=== PATIENT | female | born 1940 | race Caucasian/White ===

== ENCOUNTER 2017-11-21 10:47 | Outpatient (CLI) | payer MEDICARE, BC ==
--- NOTE | 2017-11-21 14:00 | CT ---
CT ABDOMEN AND PELVIS WITHOUT CONTRAST: Technique: Multiple axial tomograms were obtained through the abdomen and pelvis without IV enhanceme nt. History: Renal stones. Follow up renal calculi. Comparison: 05-06-17, 10-31-16 FINDINGS: Lung bases are clear. The liver, spleen, and pancreas are unremarkable. Adrenal glands are unremarkable. There continues to be numerous calculi in the upper collecting structures of the right kidney. These calculi have increased in size and number when compared to the 05-06-17 study. There is a calculus in t he upper pole collecting structures on the right measuring up to 8 mm. There is a midpole calculus me asuring 1.0 cm. There is a lower pole calculus measuring 8 to 10 mm. There are numerous other smaller calculi measuring in the 2-3 mm range. No calculi seen in the left upper collecting structures. The ureters appear unremarkable with no evidence of ureteral calculus. There is no evidence of hydron ephrosis. There is a tiny calculus seen in the left abdomen, just anterior to the psoas muscle adjacent to the mid left ureter. This calculus is stable from prior exam and appears to lie outside the ureter. Urinary bladder is mildly distended and appears unremarkable. Small bowel loops are unremarkable. Diffuse stool throughout the colon has been previously described as chronic constipation. There are post-operative changes involving both proximal femurs. There is a calcified mass lesion inv olving the lower thoracic upper lumbar spine which has been previously described. IMPRESSION: 1. Numerous calcifications in the upper collecting structures of the right kidney. These have increas ed in size and number when compared to 05-06-17. 2. No hydronephrosis or ureteral calculus identified. 3. Otherwise stable findings including chronic constipation and previously described calcified spinal mass. POS: [facility]
== END 2017-11-21 10:48 | disposition home or self-care (01) ==
LOC: CT 10:47
PROVIDERS: ATTEND Urology
DX: N20.0 Calculus of kidney (principal); N39.41 Urge incontinence; K59.00 Constipation, unspecified; R22.2 Localized swelling, mass and lump, trunk
CPT/HCPCS: 74018; 74176

== ENCOUNTER 2017-12-11 15:11 | Outpatient (CLI) | payer MEDICARE, BC ==
[2017-12-11 16:21] LABS: Mean Corpuscular HGB CONC 33.8 g/dL (32.0-36.0); Mean Corpuscular Hemoglobin 32.4 pg (27.0-31.0); Mean Platelet Volume 8.9 fL (7.4-10.4); Platelet Count 169 thou/uL (130-400); RBC Distribution Width 11.5 % (11.5-14.5); Red Blood Cell (RBC) Count 4.62 mill/uL (4.20-5.40)
[2017-12-11 16:40] LABS: Anion Gap 11 mmol/L (10-20); BUN (Urea Nitrogen) 23 mg/dL (9.8-20.1); Calc. Creatinine Clearance 0 mL/min (70-130); Calcium 9.1 mg/dL (7.8-10.44); Carbon Dioxide 26 mmol/L (23-31); Chloride 105 mmol/L (98-107); Estimated GFR-MDRD Greater than 90; Glucose 82 mg/dL (83-110); Potassium 4.5 mmol/L (3.5-5.1); Sodium 137 mmol/L (136-145)
== END 2017-12-11 15:12 | disposition home or self-care (01) ==
LOC: LABBT 15:11
PROVIDERS: ATTEND Urology
DX: Z01.818 Encounter for other preprocedural examination (principal); Z01.812 Encounter for preprocedural laboratory examination; N20.0 Calculus of kidney
CPT/HCPCS: 80048; 85027; 85610; 85730

== ENCOUNTER → 2018-01-06 | Day surgery (SDC) | payer MEDICARE, BC ==
--- NOTE | 2018-01-06 12:48 | SPC ---
LEFT UPPER EXTREMITY PICC LINE PLACEMENT: INDICATION: Need for long-term central venous access. TECHNIQUE: Preprocedure ultrasound was performed of the left upper extremity demonstrating a patent left basilic vein. The left upper extremity was prepped and draped in the usual sterile fashion. Buffered 1% Li docaine was administered to the overlying subcutaneous tissues. Under ultrasound guidance, a micropu ncture access kit was used to utilized to gain access to the left basilic vein. A guidewire was adva nced to the level of the IVC. A 5 Syrian catheter sheath was placed. A dual-lumen PICC line trimmed to 39 cm was guided over the wire through the sheath. The sheath and wire were removed. The cathet er flushed and aspirated appropriately. Total fluoroscopic time was 0.4 minutes. Total exposure was 3,277 mGy*^cm2. IMPRESSION: Successful ultrasound fluoroscopic guided left upper extremity PICC line. POS: [facility]
== END ==
LOC: SPEC 09:26
PROVIDERS: ATTEND Internal Medicine Infectious Disease
PROC: 02HV33Z Insertion of Infusion Device into Superior Vena Cava, Percutaneous Approach (ICD-10-PCS; principal; 2018-01-06)
DX: Z88.8 Allergy status to other drugs, medicaments and biological substances; Z91.018 Allergy to other foods; Z79.2 Long term (current) use of antibiotics; Z88.2 Allergy status to sulfonamides; N39.0 Urinary tract infection, site not specified
CPT/HCPCS: 36569; C1751

== ENCOUNTER 2018-01-27 06:16 | Day surgery (SDC) | payer MEDICARE, BC ==
[2017-12-11 15:29] VITALS: BMI 21.2
[2018-01-27] MEDS ORDERED: Meropenem 2 GM in Sodium Chloride 0.9% 100 ML IVPB SCH (06:45)
[2018-01-27 07:10] LABS: Hemoglobin 15.3 g/dL (12.0-16.0); Mean Corpuscular HGB CONC 33.3 g/dL (32.0-36.0); Mean Corpuscular Hemoglobin 32.2 pg (27.0-31.0); Mean Corpuscular Volume 96.8 fl (81.0-99.0); Mean Platelet Volume 9.1 fL (7.4-10.4); Platelet Count 168 thou/uL (130-400); RBC Distribution Width 11.5 % (11.5-14.5); Red Blood Cell (RBC) Count 4.75 mill/uL (4.20-5.40); White Blood Cell (WBC) Count 3.8 thou/uL (4.8-10.8)
[2018-01-27] MEDS ORDERED: Fentanyl 100 MCG/2 ML VIAL ONE ×2 (07:11)
[2018-01-27] MEDS ORDERED: Midazolam HCl 2 mg/2 ml Vial ONE (07:11)
[2018-01-27] MEDS ORDERED: Ondansetron HCl/PF 4 MG/2 ML Vial ONE (07:12)
[2018-01-27] MEDS ORDERED: Iothalamate Meglumine 60% 50 ML VIAL FS ONE (07:13)
[2018-01-27 07:16] LABS: PTT 31.1 SEC (22.9-36.1); Prothrombin Time 13.5 SEC (12.0-14.7)
[2018-01-27 07:32] LABS: Anion Gap 10 mmol/L (10-20); BUN (Urea Nitrogen) 15 mg/dL (9.8-20.1); Calc. Creatinine Clearance 76 mL/min (70-130); Calcium 9.2 mg/dL (7.8-10.44); Carbon Dioxide 26 mmol/L (23-31); Chloride 106 mmol/L (98-107); Estimated GFR-MDRD Greater than 90; Glucose 74 mg/dL (83-110); Potassium 4.2 mmol/L (3.5-5.1); Sodium 138 mmol/L (136-145)
[2018-01-27] MEDS ORDERED: Phenazopyridine HCl 97.5 MG TABLET ONE ×2 (09:07→09:08)
[2018-01-27] MEDS ORDERED: Oxybutynin 5 MG TAB ONE (09:08)
--- NOTE | 2018-01-27 09:31 | RAD ---
KUB: (3 images) INDICATION: Preop evalutation for kidney stones. COMPARISON: Prior CT of the abdomen and pelvis dated 11/27/17. FINDINGS: There is an extensive amount of stool within the rectum and colon obscuring the renal shadows. The p atient's previously demonstrated left mid ureteral calculus is poorly detailed on the current study d ue to the extent of the constipation. Lung bases are clear. There is instrumentation involving both proximal femurs. Superolateral subluxation of the right hip which is stable to the prior exam. IMPRESSION: Extensive amount of retained stool within the colon and rectum limiting the evaluation. The patient' s known renal calculi are poorly demonstrated. POS: [facility]
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
--- NOTE | 2018-01-27 10:19 | RAD ---
FOUR SUBMITTED IMAGES FROM A RIGHT-SIDED RETROGRADE IVP: Fluoroscopic time 38 seconds. Total exposure 10.9 mGy. COMPARISON: KUB dated 12/31/17. FINDINGS: The submitted images demonstrate a prominent amount of retained stool within the colon and rectum. S ubsequent images demonstrate a scope within the region of the bladder with selection of the right dis eugene ureter and retrograde opacification of right renal collecting system. There is slight limited fi lling with a contour abnormality involving the mid right ureter which may be related to the extent of the contrast opacification. This is seen at the level of the right sacral ala and may be related to a crossing vessel. The subsequent images demonstrate placement of a right ureteral stent. The sten t projects in the expected position. Small suspected phleboliths are seen within the lower right hem ipelvis. IMPRESSION: 1. Retrograde opacification of the right ureter demonstrates a small focal area of filling defect in volving the right mid ureter near the sacral ala which may be related to crossing vessel. The border s of this filling defect are not as distinct as would be expected within intraluminal stone. 2. Right ureteral stent projects in the expected position. POS: [facility]
== END 2018-01-27 13:19 ==
LOC: SDC 06:16
PROVIDERS: ATTEND Urology
PROC: 0TF38ZZ Fragmentation in Right Kidney Pelvis, Via Natural or Artificial Opening Endoscopic (ICD-10-PCS; principal; 2018-01-27)
PROC: 0T768DZ Dilation of Right Ureter with Intraluminal Device, Via Natural or Artificial Opening Endoscopic (ICD-10-PCS; 2018-01-27)
DX: N20.0 Calculus of kidney (principal); K21.9 Gastro-esophageal reflux disease without esophagitis; Z88.2 Allergy status to sulfonamides; Z88.8 Allergy status to other drugs, medicaments and biological substances; Z91.018 Allergy to other foods; Z79.899 Other long term (current) drug therapy; Z98.890 Other specified postprocedural states
CPT/HCPCS: 36415; 74018; 74420; 80048; 85027; 85610; 85730; 93005; 93010; C1758; C1769; J2185; J2250; J2405; J3010; J7050; Q9961

== ENCOUNTER 2018-01-29 16:32 | Emergency (ER) | payer MEDICARE, BC ==
[2018-01-29 17:29] LABS: #Eosinphils 0.2 thou/uL (0.0-0.7); #Lymphocytes 1.3 thou/uL (1.20-3.40); #Monocytes 0.9 thou/uL (0.11-0.59); #Neutrophils 5.3 thou/uL (1.40-6.50); %Basophils 0.4 % (0.0-1.0); %Eosinophils 2.5 % (0.0-10.0); %Lymphocytes 16.2 % (21.0-51.0); %Monocytes 11.5 % (0.0-10.0); %Neutrophils 69.4 % (42.0-75.0); Hemoglobin 15.5 g/dL (12.0-16.0); Mean Corpuscular HGB CONC 33.5 g/dL (32.0-36.0); Mean Corpuscular Hemoglobin 32.5 pg (27.0-31.0); Mean Corpuscular Volume 97.1 fl (81.0-99.0); Mean Platelet Volume 9.1 fL (7.4-10.4); Platelet Count 172 thou/uL (130-400); RBC Distribution Width 11.6 % (11.5-14.5); Red Blood Cell (RBC) Count 4.78 mill/uL (4.20-5.40); White Blood Cell (WBC) Count 7.7 thou/uL (4.8-10.8)
[2018-01-29 17:51] LABS: ALT (SGPT) 14 U/L (8-55); AST (SGOT) 20 U/L (5-34); Albumin 3.9 g/dL (3.4-4.8); Alkaline Phosphatase 117 U/L (40-150); Anion Gap 12 mmol/L (10-20); BUN (Urea Nitrogen) 25 mg/dL (9.8-20.1); Bilirubin, Total 0.6 mg/dL (0.2-1.2); Calc. Creatinine Clearance 0 mL/min (70-130); Calcium 9.2 mg/dL (7.8-10.44); Carbon Dioxide 28 mmol/L (23-31); Chloride 99 mmol/L (98-107); Estimated GFR-MDRD 87; Globulin 3.5 g/dL (2.4-3.5); Glucose 88 mg/dL (83-110); Potassium 4.5 mmol/L (3.5-5.1); Protein, Total 7.4 g/dL (6.0-8.3); Sodium 134 mmol/L (136-145)
[2018-01-29 18:00] LABS: Bilirubin Negative (Negative); Blood, Urine Large (Negative); Clarity CLOUDY (Clear); Glucose, Urine (Dipstick) Negative (Negative); Leukocyte Moderate (Negative); Nitrite Negative (Negative); Protein, Urine (Dipstick) 100 mg/dL (Neg-Trace); Urobilinogen 0.2 mg/dL (0.2-1.0)
[2018-01-29 18:05] LABS: Bacteria/HPF None Seen HPF (None Seen); Hyaline Casts/LPF 0-3 HYALINE CAST LPF (0-3 Hyaline); Pathc Cast-AUWi Flag 0.58 (0-2.49); RBC/HPF GREATER THAN 50-TNTC HPF (0-3); Squamous Epithelial 0-3 HPF (0-3)
== END 2018-01-29 19:37 | disposition home or self-care (01) ==
LOC: ERS 16:32
DX: R31.9 Hematuria, unspecified (principal); D64.9 Anemia, unspecified; K21.9 Gastro-esophageal reflux disease without esophagitis
CPT/HCPCS: 36415; 51701; 80053; 81003; 81015; 82550; 85025; A4353

== ENCOUNTER 2018-02-05 08:52 | Outpatient (CLI) | payer MEDICARE, BC ==
--- NOTE | 2018-02-05 11:02 | CT ---
ABDOMEN CT WITHOUT CONTRAST PELVIC CT WITHOUT CONTRAST: Date: 02/05/18 COMPARISON: 11/21/17. TECHNIQUE: Noncontrast abdomen and pelvic CT performed in the axial plane. Reformatted images are submitted for interpretation. FINDINGS: ABDOMEN CT: Lung bases are clear. Normal heart size. No significant pericardial fluid. The descending thoracic ao rta and abdominal aorta are unchanged. Stable mild atherosclerosis. Limited evaluation of the solid organs due to lack of IV contrast. Grossly no solid organ abnormality . Gallbladder is unremarkable. Stable anterior interposition of the colon with respect to the liver. No gastrohepatic, retrocrural, or periportal lymphadenopathy. No mesenteric mass, lymphadenopathy, free air, or free fluid. Redemonstration of a right-sided ureteral stent. Hyperdensities in the right intrarenal collecting sy stem are redemonstrated and represent small nonobstructing calculi. Calculi vary in size between 0.4 and 0.5 cm. The proximal pigtail is in the right renal pelvis and the distal pigtail is in the latera l aspect of the urinary bladder. The left intra and extrarenal collecting system do not demonstrate a ny obstructive uropathy. There is a stable, punctate nonobstructing calculus in the left ureter, betty uring 3.0 mm. Finding is unchanged. Limited evaluation of the alimentary canal. Copious amount of fecal material. Correlate clinically fo r constipation. Multiple normal caliber small bowel loops. No evidence of small bowel obstruction. There are no lytic or blastic lesions in the osseous structures. Stable hyperdensity in the central s susan canal in the distal thoracic and upper lumbar spine. Chronic changes in the left and right femu r are noted. IMPRESSION: 1. Constipation. 2. Stable nonobstructing calcification in the right intrarenal collecting system. Stable right urete ral stent. 3. Stable calcification in the left ureter without associated obstruction. POS: [facility]
== END 2018-02-05 08:53 | disposition home or self-care (01) ==
LOC: CT 08:52
PROVIDERS: ATTEND Urology
DX: N20.0 Calculus of kidney (principal); K59.00 Constipation, unspecified; N28.89 Other specified disorders of kidney and ureter
CPT/HCPCS: 74176

== ENCOUNTER 2019-02-16 09:22 | Outpatient (CLI) | payer MEDICARE, BC ==
--- NOTE | 2019-02-16 11:34 | CT ---
CT ABDOMEN AND PELVIS WITHOUT CONTRAST: HISTORY: Renal stone, contracture of joint. COMPARISON: 02/05/2018 and 11/21/2017. FINDINGS: Absence of oral and IV contrast reduces the sensitivity of the exam, particularly for the evaluation of solid organs involved. There is a calcified granuloma in the left lower lobe. No calcified gallstones are seen. No free ai r or free fluid is noted in the abdomen or pelvis. There has been interval removal of the right-side d ureteral stent since 02/05/2018. Multiple right-sided renal calculi are again seen, the largest betty uring about 7 mm. No calculi are seen in the left kidney, right ureter, or the urinary bladder. The tiny calcific density in the left hemiabdomen anterior to the left psoas muscle is again seen and ma y represent a nonobstructing ureteral calculus or phlebolith. No hydroureteral nephrosis is seen on either side. No free air or free fluid is seen in the abdomen or pelvis. There is fecal material in the colon and rectum. Chronic changes in the left and right femur are redemonstrated. IMPRESSION: 1. Interval removal of right ureteral stent since 02/05/2019. 2. Nonobstructing right renal calculi. 3. Tiny nonobstructing left ureteral calculus versus phlebolith, stable since 11/21/2017. POS: [facility]
== END 2019-02-16 09:23 | disposition home or self-care (01) ==
LOC: CT 09:22
PROVIDERS: ATTEND Urology
DX: N20.0 Calculus of kidney (principal); M24.50 Contracture, unspecified joint
CPT/HCPCS: 74176

== ENCOUNTER 2019-04-27 07:58 | Day surgery (SDC) | payer MEDICARE, BC ==
[2019-04-24 10:59] VITALS: BMI 22.8
[2019-04-27] MEDS ORDERED: MEROPENEM 1 GM/50 ML 1 GM in Premix Bag 1 BAG IVPB SCH (08:30)
--- NOTE | 2019-04-27 09:13 | RAD ---
EXAM: Single view of the abdomen HISTORY: Abdominal pain COMPARISON: None FINDINGS: Single view of the abdomen shows a nonspecific, nonobstructive bowel gas pattern. A large a mount of stool retention is seen in the colon. Air is seen in the rectum. No suspicious calcifications are seen. Degenerative changes are seen in the spine and hips. IMPRESSION: Moderate stool retention.
[2019-04-27] MEDS ORDERED: Midazolam HCl 2 mg/2 ml Vial ONE (10:54)
[2019-04-27] MEDS ORDERED: Fentanyl 100 MCG/2 ML VIAL ONE (10:54)
[2019-04-27] MEDS ORDERED: Iothalamate Meglumine 60% 50 ML VIAL FS ONE (11:02)
[2019-04-27] MEDS ORDERED: SUGAMMADEX SODIUM 200 MG/2 ML VIAL ONE (12:17)
--- NOTE | 2019-04-27 12:35 | RAD ---
EXAM: Retrograde IVP HISTORY: Kidney stones COMPARISON: CT abdomen/pelvis 02/16/2019 FINDINGS/IMPRESSION: Limited intraoperative fluoroscopic views of the retrograde IVP were submitted f or interpretation. There is no evidence of hydronephrosis. Filling defects are seen in the ureter may represent air bubbles. A double-J stent is seen in good position on the last image.
[2019-04-27] MEDS ORDERED: Phenazopyridine HCl 97.5 MG TABLET ONE ×2 (13:13)
--- NOTE | 2019-04-27 15:06 | OP ---
DATE OF PROCEDURE: 04/27/2019 PREOPERATIVE DIAGNOSES: 1. A 78-year-old female with history of right staghorn, prior history of percutaneous nephrolithotomy, stage ureteroscopy, and laser lithotripsy. 2. Recent CT staging demonstrates right upper pole 7-mm stone, mid pole 7 mm, multiple punctate renal calculi, left kidney unremarkable. POSTOPERATIVE DIAGNOSES: 1. A 78-year-old female with history of right staghorn, prior history of percutaneous nephrolithotomy, stage ureteroscopy, and laser lithotripsy. 2. Recent CT staging demonstrates right upper pole 7-mm stone, mid pole 7 mm, multiple punctate renal calculi, left kidney unremarkable. PROCEDURES PERFORMED: Cystoscopy, right retrograde pyelogram, 6 x 26 double-J ureteral stent placement with distal tail in situ, flexible ureteroscopy, pyeloscopy, laser lithotripsy, basket extraction of stone fragments, and retrograde pyelogram. ANESTHESIA: General. COMPLICATIONS: None apparent. DISPOSITION: To recovery room in stable condition. INDICATIONS FOR PROCEDURE AND HISTORY: Ms. Blair is a 78-year-old female with history of right staghorn status post PCNL at an outside facility due to residual stone nidus, UTI, and urosepsis. She previously underwent ureteroscopy and laser lithotripsy. There was significant improvement of her stone burden; however, recent CT scan demonstrates recurrent stone nidus dimensions as above. Daughter desired to proceed with elective ureteroscopy and laser lithotripsy to minimize increasing stone burden as she was quite ill from previous progression of her stone nidus. Risks and complications including, but not limited to bleeding, pain, infection, injury to adjacent organs, urosepsis, possible secondary procedure, stricture formation, ureterorenal and kidney injury, PE, DVT, perioperative morbidity and mortality were reviewed with her in detail and she desired to proceed. Daughter who is her power of attorney at law desired to proceed. DESCRIPTION OF PROCEDURE: After an informed consent was signed, the patient was taken to the operating room and placed in a dorsal lithotomy position with the genital area prepped and draped in the usual surgical sterile fashion. As previous, due to severe contracture of the lower extremities, positioning the patient is quite cumbersome. However, with all pressure points padded and protected, we did place the patient in lithotomy the best we could given that she has severe contracture of her lower extremities and hips. Genital area was formally prepped and draped. Pre-existing Raymundo catheter was removed. A 21-Mexican cystoscope was utilized for cystoscopy, which demonstrated normal bladder mucosa. The UOs were patulous. A 5-Mexican open-ended catheter was utilized to perform a retrograde pyelogram, which demonstrated nondilated collecting system. A 0.035 Sensor wire was placed into the right upper pole. At this time, a dual-lumen access sheath was utilized to perform a retrograde pyelogram, confirming proper placement. A second safety wire of 0.035 Super Stiff was placed into the right upper pole. An 11/13-Mexican x 28 cm navigator was able to be passed without difficulty to the level of the proximal ureter. A flexible ureteroscope disposable was then passed over the working Super Stiff wire to the left upper pole. We staged the collecting system. There was a moderate-sized nidus about 6-7 mm, which was retrieved with the basket through the sheath uneventfully. The stone was quite soft. The rest of the stone and collecting system were surveyed. In the right upper and mid pole, there were stone burden consistent with the CT scan. However, this is not one stone nidus, these are multiple punctate stone nidus. We tried to basket extract these, they were too small to basket as they were dust-like caliber. Therefore, using 200 micron laser fiber, we laser lithotripsied the stone dust nidus as much as we could, irrigating and flushing the stone debris out of our sheath. At the end of the procedure, there was improvement of her stone burden. Of note, it is difficult to laser nor basket these stone fragments because they were dust-like stone debris. We did stage them appropriately, those that were amendable to be basket or laser lithotripsy, we did, but it appears what appears on the CT scan is a punctate stone nidus. Given that she is sedentary and bed ridden, these can propagate and will need to be monitored. The ureter was surveyed, which demonstrated no evidence of ureteral mucosa perforation or trauma or stone nidus of concern. A 6 x 26 double-J ureteral stent was placed without difficulty and all wire was removed. A 16-Mexican Raymundo catheter was replaced. She will be discharged with Augmentin based on her previous urine culture. Augmentin 500/125 one p.o. b.i.d. for a course of 12 days, so that she is covered to the date 1 or 2 days past her cysto stent pull. Short course of Myrbetriq 50 mg one p.o. daily, #10; Colace 100 mg one p.o. b.i.d. is prescribed. She will follow up with me next for stent pull under local. KUB to be obtained the day before in the morning of 05/06. If no obvious stone debris along the course of the ureter, we will perform cysto stent pull under local. Job ID: [id number] [facility]
[2019-04-27] MEDS ORDERED: PHENYLEPHRINE-NS 100 MCG/ML 10 ML SYRINGE ONE (16:59)
[2019-04-27] MEDS ORDERED: PROPOFOL 200 MG/20 ML VIAL ONE (16:59)
[2019-04-27] MEDS ORDERED: ePHEDrine 50 MG/ML VIAL ONE (16:59)
[2019-04-27] MEDS ORDERED: Lidocaine 1% PF 5 ML VIAL ONE (16:59)
== END 2019-04-27 16:30 | disposition home or self-care (01) ==
LOC: SDC 07:58
PROVIDERS: ATTEND Urology
PROC: 0TF68ZZ Fragmentation in Right Ureter, Via Natural or Artificial Opening Endoscopic (ICD-10-PCS; principal; 2019-04-27)
PROC: 0T768DZ Dilation of Right Ureter with Intraluminal Device, Via Natural or Artificial Opening Endoscopic (ICD-10-PCS; 2019-04-27)
DX: N20.1 Calculus of ureter (principal); N39.41 Urge incontinence; G82.20 Paraplegia, unspecified; K21.9 Gastro-esophageal reflux disease without esophagitis; Z79.899 Other long term (current) drug therapy; Z88.2 Allergy status to sulfonamides; Z88.6 Allergy status to analgesic agent; Z88.8 Allergy status to other drugs, medicaments and biological substances
CPT/HCPCS: 74018; 74420; 82365; 88300; C1758; J2185; J2250; J3010

== ENCOUNTER 2020-09-14 16:03 | Inpatient (IN) | payer MEDICARE, BC ==
[~2020-09-14 16:03] MED LIST: Heparin 1,000 UNITS/ML VIAL ONE; Iopamidol-370 76% 500 ML 1 ML ONE
--- NOTE | 2020-09-14 16:16 | CT ---
EXAM: CT brain without contrast HISTORY: Difficulty speaking and following commands. COMPARISON: None TECHNIQUE: Multiple contiguous axial images were obtained and a CT of the brain without contrast. FINDINGS: There are scattered hypodensities in the subcortical and periventricular white matter consi stent with small vessel ischemic disease. There is no evidence of hydrocephalus, intracranial hemorrhage, or extra-axial fluid collection. The calvarium and overlying soft tissues are unremarkable. The visualized paranasal sinuses and masto id air cells are well aerated. IMPRESSION: No evidence of acute intracranial abnormality. Dr. [place] notified of findings at 4:12 P M on 09/14/2020.
--- NOTE | 2020-09-14 16:45 | RAD ---
EXAM: Single view of the chest HISTORY: Altered mental status and fever COMPARISON: 03/01/2017 FINDINGS: Single view of the chest shows a normal sized cardiomediastinal silhouette. Atheroscleroti c calcifications are seen in the aorta. There is no evidence of consolidation, mass, or pleural effusion. Degenerative changes are seen in the spine. IMPRESSION: No evidence of acute cardiopulmonary disease
[2020-09-14 16:49] LABS: Hemoglobin 13.4 g/dL (12.0-16.0); Mean Corpuscular HGB CONC 33.4 g/dL (32.0-36.0); Mean Corpuscular Hemoglobin 32.3 pg (27.0-31.0); Mean Corpuscular Volume 96.9 fL (78.0-98.0); Mean Platelet Volume 9.1 fL (7.4-10.4); Platelet Count 101 thou/uL (130-400); RBC Distribution Width 11.6 % (11.5-14.5); Red Blood Cell (RBC) Count 4.15 mill/uL (4.20-5.40); White Blood Cell (WBC) Count 7.4 thou/uL (4.8-10.8)
[2020-09-14 16:50] LABS: PTT 39.1 sec (22.9-36.1); Prothrombin Time 14.8 sec (12.0-14.7)
[2020-09-14 16:52] LABS: INR-International Normal Ratio 1.1
[2020-09-14] MEDS ORDERED: cefTRIAXone\\ROCEPHIN 2 GM VIAL ONE (16:59)
[2020-09-14 17:05] LABS: ALT (SGPT) 22 U/L (8-55); AST (SGOT) 19 U/L (5-34); Albumin 2.9 g/dL (3.4-4.8); Alkaline Phosphatase 107 U/L (40-110); Anion Gap 10 mmol/L (10-20); BUN (Urea Nitrogen) 24 mg/dL (9.8-20.1); Bilirubin, Total 0.4 mg/dL (0.2-1.2); Calc. Creatinine Clearance 0 mL/min (70-130); Calcium 8.3 mg/dL (7.8-10.44); Carbon Dioxide 26 mmol/L (23-31); Chloride 97 mmol/L (98-107); Globulin 3.3 g/dL (2.4-3.5); Glucose 134 mg/dL (83-110); Potassium 4.5 mmol/L (3.5-5.1); Protein, Total 6.2 g/dL (6.0-8.3); Sodium 128 mmol/L (136-145)
[2020-09-14 17:09] LABS: Band 21 % (5-11); Lymphocytes 3 % (21-51); MDiff Complete? YES; Neutrophil 76 % (42-75); Platelet Morphology Comment Appears Decreased; RBC Morphology Normal; Vacuoles SLIGHT
[2020-09-14 17:40] LABS: Bacteria/HPF 4+ HPF (None Seen); Bilirubin Negative (Negative); Blood, Urine 1+ (Negative); Clarity Turbid (Clear); Glucose, Urine (Dipstick) Normal (Negative); Ketone, Urine Negative (Negative); Leukocyte 500 Leu/uL (Negative); Nitrite 2+ (Negative); Protein, Urine (Dipstick) 100 mg/dL (Neg-Trace); Specific Gravity, Urine 1.039 (1.002-1.036); Squamous Epithelial None Seen HPF (0-3); Urobilinogen Normal mg/dL (Less than 2); WBC/HPF Greater than 50 HPF (0-3); Yeast-Budding 1+ HPF (None Seen); pH, Urine 7.5 (5.0-9.0)
[2020-09-14 18:15] LABS: SARS-CoV-2 NAA Rapid Test Not Detected (NotDetected)
[2020-09-14] MEDS ORDERED: Vancomycin 1 GM/200 ML BAG ONE (18:31)
[2020-09-14 20:30] LABS: Lactic Acid 2.2 mmol/L (0.5-2.2)
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
[2020-09-15 03:59] LABS: Band 12 % (5-11); Hemoglobin 13.8 g/dL (12.0-16.0); Lymphocytes 1 % (21-51); MDiff Complete? YES; Mean Corpuscular HGB CONC 33.9 g/dL (32.0-36.0); Mean Corpuscular Hemoglobin 33.3 pg (27.0-31.0); Mean Corpuscular Volume 98.1 fL (78.0-98.0); Mean Platelet Volume 9.3 fL (7.4-10.4); Neutrophil 87 % (42-75); Platelet Count 85 thou/uL (130-400); Platelet Morphology Comment Appears Decreased; RBC Distribution Width 11.8 % (11.5-14.5); Red Blood Cell (RBC) Count 4.14 mill/uL (4.20-5.40); White Blood Cell (WBC) Count 9.5 thou/uL (4.8-10.8)
[2020-09-15 04:04] LABS: Anion Gap 14 mmol/L (10-20); BUN (Urea Nitrogen) 18 mg/dL (9.8-20.1); Calc. Creatinine Clearance 0 mL/min (70-130); Calcium 8.2 mg/dL (7.8-10.44); Carbon Dioxide 21 mmol/L (23-31); Chloride 105 mmol/L (98-107); Glucose 99 mg/dL (83-110); Potassium 4.2 mmol/L (3.5-5.1); Sodium 136 mmol/L (136-145)
[2020-09-15] MEDS: Sodium Chloride 0.9% 1,000 ML IV SCH ×4 (04:17→22:37)
[2020-09-15] MEDS ORDERED: Baclofen 10 MG TAB PO PRN (07:13)
[2020-09-15] MEDS ORDERED: Bisacodyl 10 MG SUPP PR PRN (07:13)
[2020-09-15] MEDS ORDERED: Enoxaparin Sodium 40 MG/0.4 ML SYRINGE ONE (08:32)
--- NOTE | 2020-09-15 08:57 | ULT ---
THYROID ULTRASOUND: INDICATION: Thyroid nodule seen on chest CT. FINDINGS: Both lobes of thyroid are heterogeneous and mildly enlarged. Right lobe: 1.6 x 4.5 x 2.1 cm. Left lobe: 2.5 x 6.0 x 2.7 cm. LEFT LOBE: There are 2 dominant nodules seen and a somewhat isoechoic heterogeneous nodule in the upper mid lobe measures 2.0 x 1.5 cm. A larger nodule in the inferior left lobe measures 2.6 x 3.3 x 3.1 cm. Ther e a small nodule in the mid lobe that measures 1.0 cm with calcification. RIGHT LOBE: Three small nodules in the right lobe. Upper lobe nodule measures 1.0 cm. A mid lobe nodule measure s 0.6 cm. A lower lobe nodule measures 1.0 cm. IMPRESSION: Multinodular gland. There are 2 dominant nodules in the left lobe, both are TIRADS3. The size of th miguel ángel nodules would indicate fine needle aspirate. Recommend ENT consultation and consider elective fi ne needle aspiration of the 2 dominant left lobe nodules. POS: AGW
[2020-09-15] MEDS ORDERED: Enoxaparin Sodium 40 MG/0.4 ML SYRINGE SC SCH (09:00)
--- NOTE | 2020-09-15 11:07 | CT ---
Exam: CTA neck with contrast CTA head with contrast HISTORY: Stroke with difficulty speaking COMPARISON: None TECHNIQUE: 1. Multiple contiguous axial images were obtained and a CTA of the neck with contrast. 3-D sagittal a nd coronal MIP reformats were performed. 2. Multiple contiguous axial images were obtained and a CTA of the head with contrast. 3-D sagittal a nd coronal MIP reformats were performed. FINDINGS: CTA NECK: Aortic arch: Normal origin of the carotid arteries from the arch. No significant atherosclerotic dise ase of the subclavian arteries. There is an area of tortuosity and significant narrowing of the left subclavian artery with apparent 90% stenosis. Right common carotid artery: No significant atherosclerotic disease or narrowing Left common carotid artery: No significant atherosclerotic disease or narrowing Right internal carotid artery: No significant atherosclerotic disease or narrowing per NASCET criteri a Right external carotid artery: No significant atherosclerotic disease or narrowing Left internal carotid artery: Approximately 25% focal stenosis per NASCET criteria predominantly by soft plaque. Left external carotid artery: No significant atherosclerotic disease or narrowing Right cervical vertebral artery: No significant atherosclerotic disease or narrowing Left cervical vertebral artery: No significant atherosclerotic disease or narrowing No cervical adenopathy. Scarring is seen in the right lung apex. Degenerative changes are seen in the spine. There is a 3.3 cm mixed left thyroid nodule. Other smaller nodules are seen in the thyroid gland. CTA HEAD: Mild diffuse bilateral atherosclerotic plaque is seen in the cavernous portion of both internal carot id arteries. Right intracranial internal carotid artery: Patent without narrowing or occlusion Right anterior cerebral artery: Patent without narrowing or occlusion Right middle cerebral artery: Patent without narrowing or occlusion There is a right posterior communicating artery. Left intracranial internal carotid artery: Patent without narrowing or occlusion Left anterior cerebral artery: Patent without narrowing or occlusion Left middle cerebral artery: Patent without narrowing or occlusion No aneurysmal dilatation is seen in the anterior circulation. Right vertebral artery: Patent without narrowing or occlusion Left vertebral artery: Patent without narrowing or occlusion Basilar artery: Patent without narrowing or occlusion The posterior cerebral arteries and cerebellar arteries are patent without narrowing or occlusion. No aneurysmal dilatation is seen in the posterior circulation. IMPRESSION: 1. Approximately 25% stenosis of the proximal left internal carotid artery in the neck. 2. No significant CTA abnormality of the head 3. Left thyroid nodule should be further evaluated with a nonemergent outpatient thyroid ultrasound. Dr. [place] notified of findings at 4:32 PM on 09/14/2020. Transcribed Date/Time: 09/15/2020 11:07 AM
--- NOTE | 2020-09-15 12:55 | PDOC.HOSPP ---
- Subjective Encounter Date: 09/15/20 Encounter Time: 10:15 Subjective: feels better, keeps eyes closed due to diplopia and photophobia which is chronic no abd pain or nausea is trying to eat her breakfast - Objective Vital Signs & Weight: Vital Signs (12 hours) Temp Pulse Resp BP Pulse Ox 09/15/20 12:49 97.8 F 82 16 98/58 L 95 Result Diagrams: 09/15/20 03:35 09/15/20 03:35 Additional Labs: Accuchecks 09/14/20 16:05 POC Glucose 123 H Hospitalist ROS - Medication Medications: Active Medications Generic Name Dose Route Start Last Admin Trade Name Freq PRN Reason Stop Dose Admin Enoxaparin Sodium 40 mg 09/15/20 09:00 09/15/20 08:42 Enoxaparin Sodium 40 Mg/0.4 Ml Syringe SC Not Given 0900 SAULO Sodium Chloride 1,000 mls @ 75 mls/hr 09/14/20 22:15 09/15/20 04:17 Normal Saline 0.9% IV 1,000 mls .[id number] SAULO Administration Pantoprazole Sodium 40 mg 09/15/20 09:00 09/15/20 08:43 Pantoprazole 40 Mg Tab PO 40 mg DAILY SAULO Administration - Exam General Appearance: awake alert, ill appearing Eye: PERRL, anicteric sclera ENT: no oropharyngeal lesions, dry oral mucosa Neck: supple, no JVD Heart: RRR, no murmur Respiratory: no wheezes, no rales Gastrointestinal: soft, non-tender, non-distended, normal bowel sounds Extremities - other findings: likely has hip dislocations with deformed LE Neurological - other findings: paraplegia with contractures Psychiatric: A&O x 3 Hosp A/P (1) Severe dehydration Code(s): E86.0 - DEHYDRATION Status: Acute (2) Gram negative sepsis Code(s): A41.50 - GRAM-NEGATIVE SEPSIS, UNSPECIFIED Status: Acute (3) Sepsis Code(s): A41.9 - SEPSIS, UNSPECIFIED ORGANISM Status: Acute Qualifiers: Sepsis type: Escherichia coli Sepsis acute organ dysfunction status: without acute organ dysfunction Qualified Code(s): A41.51 - Sepsis due to Escherichia coli [E. coli] (4) UTI (urinary tract infection) Status: Acute Qualifiers: Urinary tract infection type: acute cystitis Hematuria presence: without hematuria Qualified Code(s): N30.00 - Acute cystitis without hematuria (5) Nephrolithiasis Status: Chronic (6) Paraplegia Code(s): G82.20 - PARAPLEGIA, UNSPECIFIED Status: Chronic (7) FTT (failure to thrive) in adult Status: Chronic (8) Moderate protein malnutrition Code(s): E44.0 - MODERATE PROTEIN-CALORIE MALNUTRITION Status: Chronic - Plan has esbl +ve e.coli on prelim blood cultures with invasive uti on meropenem, iv fluids continue protonix, baclofen prn prognosis guarded ID consultation h/o prior enterococcus bacteremia, nephrolithiasis as well will obtain CT abd and pelvis to r/o obstructive uropathy
--- NOTE | 2020-09-15 14:32 | CT ---
CT Stone Protocol: 09/15/2020 2:02 PM HISTORY: Escherichia coli bacteremia with urinary tract infection COMPARISON: 02/16/2019, 11/21/2017 and CTA head 09/14/2020 TECHNIQUE: Multiple contiguous axial images were obtained and a CT of the abdomen and pelvis without IV contrast . Coronal and sagittal reformats were performed. FINDINGS: This examination is limited for the evaluation of solid organs and vascular structures due to the lac k of intravenous contrast. Lower Chest: Bilateral dependent atelectasis Abdomen: Liver: within normal limits. Bile Ducts: Normal caliber. Gallbladder: No calcified gallstones. Normal caliber wall. Pancreas: within normal limits. Spleen: within normal limits. Adrenals: within normal limits. Kidneys: There is still retained contrast in the right kidney from yesterday's CT contrast. There is a tiger stripe appearance of the right kidney consistent with pyelonephritis. Multiple calcifications are seen in the right kidney measuring up to 11 mm in size. There is moderate right hy dronephrosis. No left hydronephrosis. A small amount of contrast is seen in the left renal collecting system and ureter. Pelvis: Reproductive Organs: No pelvic masses. Ureters: 8 mm calcification in the distal right ureter with moderate right hydroureter. Bladder: within normal limits. Bowel: Normal caliber. A large amount of stool is seen throughout the colon. Mesenteric Lymph Nodes: No enlarged mesenteric lymph nodes. Peritoneum: No ascites or free air, no fluid collection. Vessels: Atherosclerotic calcifications in the aorta Retroperitoneum: within normal limits. Abdominal Wall: within normal limits. Bones: Degenerative changes in the spine. There is a stable hyperdense mass within the central canal posterior to the T12 and L1 vertebral bodies. IMPRESSION: 1. Right distal ureteral calcification with moderate right hydronephrosis. This appears to be obstruc ting as retained contrast is still seen in the right kidney. 2. The abnormal enhancement pattern of the right kidney suggests right-sided pyelonephritis. 3. Multiple additional nonobstructing right renal calcifications. 4. Stable hyperdense mass within the central canal at the thoracolumbar junction.
[2020-09-15] MEDS: MEROPENEM 1 GM/50 ML 1 GM in Premix Bag 1 BAG IVPB SCH ×2 (14:34→21:45)
[2020-09-15] MEDS ORDERED: traMADol HCl 50 MG TAB PO PRN (15:07)
[2020-09-15] MEDS ORDERED: GenTeal Tears Severe Dry Eye GEL 10 G EA EYE PRN (15:15)
[2020-09-15] MEDS ORDERED: cefTRIAXone\\ROCEPHIN 1 GM in Sodium Chloride 0.9% 100 ML IVPB SCH (17:00)
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
[2020-09-15 19:31] VITALS: BMI 19.6
[2020-09-15] MEDS: Docusate 100 MG CAP PO SCH (21:44)
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
[2020-09-16 04:34] LABS: Anion Gap 10 mmol/L (10-20); BUN (Urea Nitrogen) 15 mg/dL (9.8-20.1); Calc. Creatinine Clearance 69 mL/min (70-130); Calcium 7.9 mg/dL (7.8-10.44); Carbon Dioxide 23 mmol/L (23-31); Chloride 108 mmol/L (98-107); Glucose 119 mg/dL (83-110); Potassium 3.4 mmol/L (3.5-5.1); Sodium 138 mmol/L (136-145)
[2020-09-16 05:29] LABS: Band 33 % (5-11); Hemoglobin 12.8 g/dL (12.0-16.0); Lymphocytes 3 % (21-51); MDiff Complete? YES; Mean Corpuscular HGB CONC 32.8 g/dL (32.0-36.0); Mean Corpuscular Volume 97.7 fL (78.0-98.0); Mean Platelet Volume 9.6 fL (7.4-10.4); Monocytes 2 % (0-10); Neutrophil 62 % (42-75); Platelet Count 100 thou/uL (130-400); Platelet Morphology Comment Appears Decreased; RBC Distribution Width 11.7 % (11.5-14.5); White Blood Cell (WBC) Count 6.3 thou/uL (4.8-10.8)
[2020-09-16] MEDS: MEROPENEM 1 GM/50 ML 1 GM in Premix Bag 1 BAG IVPB SCH ×3 (06:28→21:05)
--- NOTE | 2020-09-16 07:12 | PRG ---
DATE OF SERVICE: 09/16/2020 SUBJECTIVE: The patient is without complaints. Denies significant flank pain, chills, or rigors. OBJECTIVE: VITAL SIGNS: Stable. T-max of 99.4, 86, 20, 96, 133/60. GENERAL: The patient is in no acute distress. LUNGS: Clear. ABDOMEN: Soft. No rigidity. No rebound. EXTREMITIES: Severely contracted lower extremities. PERTINENT LABORATORY DATA: White count 6.3, hemoglobin 12, and platelets 100 with bandemia. Renal function stable, creatinine of 0.56. Blood culture and urine culture reviewed demonstrating E. coli, multi-drug resistant, currently on meropenem. IMPRESSION AND PLAN: 1. A 79-year-old female with history of right staghorn, remote history of PCNL at an outside facility, status post multiple ureteroscopies. 2. Current admission with E. coli UTI/urosepsis right hydronephrosis. n.p.o. for cysto, right stent. Will need prolonged IV antibiotic therapy, ureteroscopy in few weeks. will need PICC for iV atb Job ID: [id number] [facility]
[2020-09-16] MEDS ORDERED: Lidocaine 1% PF 5 ML VIAL ONE (09:51)
[2020-09-16] MEDS ORDERED: PHENYLEPHRINE-NS 100 MCG/ML 10 ML SYRINGE ONE (09:51)
[2020-09-16] MEDS ORDERED: ePHEDrine 50 MG/ML VIAL ONE (09:51)
[2020-09-16] MEDS ORDERED: PROPOFOL 200 MG/20 ML VIAL ONE (09:51)
[2020-09-16] MEDS ORDERED: Ondansetron PF 4 MG/2 ML Vial ONE (09:51)
[2020-09-16] MEDS ORDERED: Rocuronium Bromide 10 MG/ML (10ML VIAL) ONE (09:51)
[2020-09-16] MEDS ORDERED: Iothalamate Meglumine 60% 50 ML VIAL FS ONE (10:00)
[2020-09-16] MEDS: Docusate 100 MG CAP PO SCH ×2 (10:40→21:06)
[2020-09-16] MEDS: Polyethylene Glycol 3350 17 GM Packet PO SCH (10:40)
[2020-09-16] MEDS: traMADol HCl 50 MG TAB PO SCH (10:40)
--- NOTE | 2020-09-16 11:14 | RAD ---
RETROGRAGE IVP: 32 fluoroscopic images presented from the OR during retrograde procedure with stent placement. FINDINGS/IMPRESSION: These fluorosocpic images show wire directed into the right ureter followed by a catheter with opacif ication of the right collecting structures. Final image demonstrates placement of a right double-pig tail ureteral stent. POS: AGW
--- NOTE | 2020-09-16 11:40 | OP ---
DATE OF PROCEDURE: 09/16/2020 PREOPERATIVE DIAGNOSES: 1. Right distal ureteral calculi. 2. Multiple right renal calculi. 3. Right hydronephrosis. 4. Escherichia coli urosepsis. POSTOPERATIVE DIAGNOSES: 1. Right distal ureteral calculi. 2. Multiple right renal calculi. 3. Right hydronephrosis. 4. Escherichia coli urosepsis. PROCEDURES PERFORMED: Cystoscopy, right retrograde, 6 x 30 double-J ureteral stent. ANESTHESIA: LMA. COMPLICATIONS: None apparent. DISPOSITION: To recovery room. DRAINS: 6 x 30 stent, 16-Bolivian 10 mL Raymundo catheter to gravity. INTRAOPERATIVE FINDINGS: 1. Resistance at the right distal ureter consistent with CT demonstrating stone. There was an extra ureteral large calcific density medial in the mid sacrum outside the ureter. 2. Multiple filling defects consistent with pyonephrosis and renal calculi. 3. Corkscrewing of the right proximal ureter due to high-grade obstruction. INDICATIONS FOR PROCEDURE AND HISTORY: Ms. Blair is a 79-year-old female with history of recurrent kidney stone, history of staghorn calculi. She presented with mental status changes. Workup demonstrates right hydro E coli UTI. She has been clinically stable, despite her presentation. Has been appropriately cultured on meropenem seen by Infectious Disease. She has been afebrile with no significant leukocytosis and presents today for above procedure. She has been fully informed regarding risks and complications including, but not limited to, bleeding, pain, infection, injury to adjacent organs, ureteral renal kidney injury, perioperative morbidity and mortality. All questions answered and she desired to proceed. DESCRIPTION OF PROCEDURE: After an informed consent was signed, the patient was taken to the operating room, placed in a dorsal lithotomy position with the genital area prepped and draped in the usual surgical sterile fashion. The patient as previous was very difficult to put in lithotomy due to severe contracture of her lower extremity. After she was formally prepped and draped, we used a 21-Bolivian cystoscope. Upon entering the bladder, there was moderate amount of debris within the bladder. Visualization was poor due to significant debris. The UO was identified and patulous. Open-ended catheter was utilized to intubate the right UO. We gently attempted to pass a 0.035 Sensor wire with some resistance. At the level of the distal ureter S3 level, however, I was able to bypass this. The wire was then passed to the level of the proximal ureter with corkscrewing. The corkscrewing was seen, however, I could not get the wire to the level of the renal pelvis. Therefore, an open-ended catheter was passed through this junction and a gentle retrograde pyelogram was performed opacifying the proximal portion of the UPJ. With this, I was able to use a 0.35 angled Glidewire and with fat negotiation, the wire did go up into the right upper pole. We subsequently passed the open-ended catheter into the right upper pole and the wire was switched to a 0.035 Sensor wire, a 6 x 30 double-J ureteral stent. Decompression of the right collecting system was noted with significant debris consistent with pyonephrosis. A 16-Bolivian 10 mL Raymundo catheter placed for strict I's and O's and she tolerated the procedure well and she remained hemodynamically stable. The patient will go back to the floor and continue meropenem . Job ID: [id number] [facility]
--- NOTE | 2020-09-16 13:07 | PDOC.HOSPP ---
- Subjective Encounter Date: 09/16/20 Encounter Time: 12:30 Subjective: just had cystoscopy with stenting, a bit groggy not in distress, awakens to touch - Objective Vital Signs & Weight: Vital Signs (12 hours) Temp Pulse Resp BP Pulse Ox 09/16/20 12:10 97.0 F L 80 16 101/54 L 97 09/16/20 11:55 97.2 F L 78 16 98/57 L 98 09/16/20 08:00 97 09/16/20 07:52 98.8 F 99 20 117/55 L 97 Weight Weight 114 lb 6.4 oz I&O: 09/15/20 09/16/20 09/17/20 06:59 06:59 06:59 Intake Total 1230 Balance 1230 Result Diagrams: 09/16/20 03:51 09/16/20 03:51 Additional Labs: Accuchecks 09/15/20 21:11 POC Glucose 142 H Hospitalist ROS - Medication Medications: Active Medications Generic Name Dose Route Start Last Admin Trade Name Tri PRN Reason Stop Dose Admin Docusate Sodium 100 mg 09/15/20 21:00 09/16/20 10:40 Docusate 100 Mg Cap PO Not Given BID SAULO Enoxaparin Sodium 40 mg 09/15/20 09:00 09/15/20 08:42 Enoxaparin Sodium 40 Mg/0.4 Ml Syringe SC Not Given 0900 SAULO Meropenem 1 gm/ Device 50 mls @ 100 mls/hr 09/15/20 14:00 09/16/20 12:10 IVPB Not Given Q8HR SAULO Sodium Chloride 1,000 mls @ 125 mls/hr 09/15/20 15:15 09/15/20 22:37 Normal Saline 0.9% IV 1,000 mls .Q8H SAULO Administration Pantoprazole Sodium 40 mg 09/15/20 09:00 09/16/20 10:40 Pantoprazole 40 Mg Tab PO Not Given DAILY SAULO Polyethylene Glycol 17 gm 09/16/20 09:00 09/16/20 10:40 Polyethylene Glycol 3350 17 Gm Packet PO Not Given DAILY SAULO Tramadol HCl 25 mg 09/16/20 09:00 09/16/20 10:40 Tramadol Hcl 50 Mg Tab PO Not Given DAILY SAULO - Exam Eye: PERRL, anicteric sclera ENT: no oropharyngeal lesions, dry oral mucosa Neck: supple, no JVD Heart: RRR, no murmur Respiratory: no wheezes, no rales, rhonchi Gastrointestinal: soft, non-tender, non-distended, normal bowel sounds Gastrointestinal - other findings: kang has clear urine Extremities - other findings: paraplegia with dislocations of both hips? Neurological - other findings: paraplegia Hosp A/P (1) Severe dehydration Code(s): E86.0 - DEHYDRATION Status: Resolved (2) Sepsis Code(s): A41.9 - SEPSIS, UNSPECIFIED ORGANISM Status: Acute Qualifiers: Sepsis type: Escherichia coli Sepsis acute organ dysfunction status: with acute organ dysfunction Severe sepsis acute organ dysfunction type: encephalopathy Severe sepsis shock status: without septic shock Qualified Code(s): A41.51 - Sepsis due to Escherichia coli [E. coli]; R65.20 - Severe sepsis without septic shock; G93.41 - Metabolic encephalopathy (3) UTI (urinary tract infection) Status: Acute Qualifiers: Urinary tract infection type: acute cystitis Hematuria presence: without hematuria Qualified Code(s): N30.00 - Acute cystitis without hematuria (4) Nephrolithiasis Status: Chronic (5) Paraplegia Code(s): G82.20 - PARAPLEGIA, UNSPECIFIED Status: Chronic (6) FTT (failure to thrive) in adult Status: Chronic (7) Moderate protein malnutrition Code(s): E44.0 - MODERATE PROTEIN-CALORIE MALNUTRITION Status: Chronic (8) right obstructive uropathy Status: Acute - Plan is s/p cystoscopy with right ureteral stent, for picc line today will need outpt ertapenem, duration per advice until her stone is extracted. has esbl +ve e.coli on blood cultures with invasive uti on meropenem, iv fluids continue protonix, baclofen prn prognosis guarded h/o prior enterococcus bacteremia, nephrolithiasis as well d/w daughter over phone and gave full updates
--- NOTE | 2020-09-16 14:28 | SPC ---
Exam: Leftupper extremity ultrasound guided PICC line HISTORY: TPN, IV antibiotics Exposure:0.3 minutes, 907 mg/sq cm FINDINGS: Lumen: Singlelumen Trim length: 36 cm Distal tip:Right atrium Catheter flushes and aspirates without difficulty TECHNIQUE: Consent obtained to perform a left upper extremity PICC line with ultrasound guidance. Le ftarm was prepped and draped in a sterile fashion. 1% lidocaine, buffered with sodium bicarbonate was used for local anesthesia. Under ultrasound guidance, micropuncture needle was used to cannulate thebrachialvein. A 0.018 guidewire was advanced through the needle to level of the superior vena cava. Under fluoroscopy, the wire was further advanced into the inferior vena cava to document venous access. Wire was subsequently pulled back to theright atrium. Single lumen flushes and aspirates without difficulty. Patient tolerated the procedure well. No immediate or postprocedure complications IMPRESSION: Successfulleftupper surgery PICC line placement with ultrasound guidance
[2020-09-16] MEDS: Sodium Chloride 0.9% 1,000 ML IV SCH ×2 (15:02→16:49)
[2020-09-17] MEDS: Sodium Chloride 0.9% 1,000 ML IV SCH ×3 (00:04→15:55)
[2020-09-17] MEDS: MEROPENEM 1 GM/50 ML 1 GM in Premix Bag 1 BAG IVPB SCH ×3 (05:26→20:58)
[2020-09-17 08:57] LABS: #Eosinphils 0.1 thou/uL (0.0-0.7); #Lymphocytes 0.6 thou/uL (1.20-3.40); #Monocytes 0.9 thou/uL (0.11-0.59); #Neutrophils 7.7 thou/uL (1.40-6.50); %Basophils 0.1 % (0.0-1.0); %Eosinophils 0.6 % (0.0-10.0); %Lymphocytes 6.1 % (21.0-51.0); %Monocytes 10.1 % (0.0-10.0); %Neutrophils 83.1 % (42.0-75.0); Hemoglobin 12.5 g/dL (12.0-16.0); Mean Corpuscular HGB CONC 33.3 g/dL (32.0-36.0); Mean Corpuscular Hemoglobin 32.3 pg (27.0-31.0); Mean Platelet Volume 9.7 fL (7.4-10.4); Platelet Count 111 thou/uL (130-400); RBC Distribution Width 12.1 % (11.5-14.5); Red Blood Cell (RBC) Count 3.87 mill/uL (4.20-5.40); White Blood Cell (WBC) Count 9.2 thou/uL (4.8-10.8)
[2020-09-17] MEDS: traMADol HCl 50 MG TAB PO SCH (09:00)
[2020-09-17] MEDS: Polyethylene Glycol 3350 17 GM Packet PO SCH (09:00)
[2020-09-17] MEDS: Docusate 100 MG CAP PO SCH ×2 (09:00→20:59)
[2020-09-17 09:06] LABS: Anion Gap 18 mmol/L (10-20); BUN (Urea Nitrogen) 12 mg/dL (9.8-20.1); Calc. Creatinine Clearance 84 mL/min (70-130); Calcium 7.7 mg/dL (7.8-10.44); Carbon Dioxide 18 mmol/L (23-31); Chloride 109 mmol/L (98-107); Potassium 3.2 mmol/L (3.5-5.1); Sodium 142 mmol/L (136-145)
[2020-09-17 09:14] LABS: Glucose 53 mg/dL (83-110)
--- NOTE | 2020-09-17 09:49 | PRG ---
DATE OF SERVICE: 09/17/2020 The patient is afebrile. Vital signs are stable. She is urinating into a diaper. Raymundo catheter was pulled out. Nurses reported that Dr. Oliveira knew about this and felt it was okay to leave it out and that they were going to hold her Lovenox. Her white count is normal. Creatinine is normal. She has resistant E coli, which is resistant to Bactrim, quinolone, and cephalosporins; it is sensitive to Macrobid. She is currently on appropriate antibiotic therapy. The length of this therapy will probably need to be determined with Dr. Eid's help. Currently, she seems stable from her procedure yesterday. Job ID: [id number]
--- NOTE | 2020-09-17 13:13 | PDOC.HOSPP ---
- Subjective Encounter Date: 09/17/20 Encounter Time: 13:11 Subjective: Ms. Blair was seen today in follow-up of UTI> She does not have any complaints. - Objective Vital Signs & Weight: Vital Signs (12 hours) Temp Pulse Resp BP Pulse Ox 09/17/20 11:34 98.2 F 84 18 109/64 95 09/17/20 08:19 98.0 F 97 18 143/86 H 94 L 09/17/20 08:00 97 Weight Weight 114 lb 6.4 oz I&O: 09/16/20 09/17/20 09/18/20 06:59 06:59 06:59 Intake Total 1230 2340 Output Total 800 Balance 1230 1540 Result Diagrams: 09/17/20 08:36 09/17/20 08:36 Additional Labs: Accuchecks 09/17/20 12:06 POC Glucose 170 H Hospitalist ROS - Medication Medications: Active Medications Generic Name Dose Route Start Last Admin Trade Name Freq PRN Reason Stop Dose Admin Baclofen 10 mg 09/15/20 07:13 09/16/20 21:03 Baclofen 10 Mg Tab PO 10 mg BIDPRN PRN Administration muscle spasms Docusate Sodium 100 mg 09/15/20 21:00 09/17/20 09:00 Docusate 100 Mg Cap PO 100 mg BID SAULO Administration Meropenem 1 gm/ Device 50 mls @ 100 mls/hr 09/15/20 14:00 09/17/20 05:26 IVPB 50 mls Q8HR SAULO Administration Sodium Chloride 1,000 mls @ 125 mls/hr 09/15/20 15:15 09/17/20 09:09 Normal Saline 0.9% IV 1,000 mls .Q8H SAULO Administration Pantoprazole Sodium 40 mg 09/15/20 09:00 09/17/20 09:00 Pantoprazole 40 Mg Tab PO 40 mg DAILY SAULO Administration Polyethylene Glycol 17 gm 09/16/20 09:00 09/17/20 09:00 Polyethylene Glycol 3350 17 Gm Packet PO 17 gm DAILY SAULO Administration Tramadol HCl 25 mg 09/16/20 09:00 09/17/20 09:00 Tramadol Hcl 50 Mg Tab PO 25 mg DAILY SAULO Administration - Exam Eye: PERRL, anicteric sclera Heart: RRR, no murmur, no gallops, no rubs, normal peripheral pulses Respiratory: CTAB, no wheezes, no rales, no ronchi, normal chest expansion, no tachypnea Gastrointestinal: soft, non-tender, non-distended, normal bowel sounds, no palpable masses, no hepatomegaly Extremities: no cyanosis Musculoskeletal: diffuse muscle atrophy Hosp A/P (1) UTI (urinary tract infection) Status: Acute Qualifiers: Urinary tract infection type: acute cystitis Hematuria presence: without hematuria Qualified Code(s): N30.00 - Acute cystitis without hematuria (2) right obstructive uropathy Status: Acute (3) Moderate protein malnutrition Code(s): E44.0 - MODERATE PROTEIN-CALORIE MALNUTRITION Status: Chronic (4) Nephrolithiasis Status: Chronic (5) Paraplegia Code(s): G82.20 - PARAPLEGIA, UNSPECIFIED Status: Chronic - Plan * UTI in the setting of Right nephrolithiasis- She is s/p ureteral STENT placement, Urine culture is growing E. Coli which is multi-drug resistant * Continue Meropenem, and anticipate the need for Outpatient Invanz * Moderate Protien calorie malnutrition- her daughter is at bedside, and her oral inake appears adequate now
[2020-09-17] MEDS: BERBERINE PO SCH (14:13)
[2020-09-17] MEDS: HOPS PO SCH (14:13)
[2020-09-17] MEDS: VIT D3 VIT K PO SCH (14:13)
--- NOTE | 2020-09-17 15:23 | EKG ---
Test Reason : AMS Blood Pressure : / mmHG Vent. Rate : 109 BPM Atrial Rate : 109 BPM P-R Int : 158 ms QRS Dur : 082 ms QT Int : 328 ms P-R-T Axes : 072 037 052 degrees QTc Int : 441 ms Sinus tachycardia with Fusion complexes Otherwise normal ECG Confirmed by KLAUS LUONG, AGATHA ([id number]), industrial editor COLIN PHELPS ([id number]) on 09/17/2020 3:22:42 PM Referred By: KLAUS Confirmed By:AGATHA ENRIQUE MD
[2020-09-18] MEDS: Sodium Chloride 0.9% 1,000 ML IV SCH ×4 (00:45→22:53)
[2020-09-18] MEDS: MEROPENEM 1 GM/50 ML 1 GM in Premix Bag 1 BAG IVPB SCH ×3 (05:15→22:51)
[2020-09-18] MEDS ORDERED: Potassium Chloride 20 MEQ TAB PO SCH ×2 (07:45→12:00)
[2020-09-18] MEDS: Docusate 100 MG CAP PO SCH ×2 (08:47→20:31)
[2020-09-18] MEDS: Enoxaparin Sodium 40 MG/0.4 ML SYRINGE SC SCH (08:48)
[2020-09-18] MEDS: traMADol HCl 50 MG TAB PO SCH (08:48)
[2020-09-18] MEDS: Polyethylene Glycol 3350 17 GM Packet PO SCH (08:48)
--- NOTE | 2020-09-18 13:14 | PRG ---
DATE OF SERVICE: 09/18/2020 The patient is afebrile with stable vital signs. She is urinating into a diaper. She has no complaints. She has no pain or discomfort. She seems to do fine after placement of her stent. Dr. Oliveira will be back tomorrow. Job ID: [id number]
[2020-09-18 15:41] LABS: Potassium 3.8 mmol/L (3.5-5.1)
--- NOTE | 2020-09-18 16:19 | PDOC.HOSPP ---
- Subjective Encounter Date: 09/18/20 Encounter Time: 16:18 Subjective: Ms. Blair was seen today in follow-up of UTI with MDR E Coli. She does not have any complaints today. - Objective Vital Signs & Weight: Vital Signs (12 hours) Temp Pulse Resp BP Pulse Ox 09/18/20 15:55 98.1 F 83 16 131/71 95 09/18/20 11:30 98 F 79 16 119/70 95 09/18/20 08:14 97.7 F 85 16 135/66 94 L 09/18/20 08:00 94 L Weight Weight 114 lb 6.4 oz I&O: 09/17/20 09/18/20 09/19/20 06:59 06:59 06:59 Intake Total 2340 3548 Output Total 800 Balance 1540 3548 Result Diagrams: 09/17/20 08:36 09/18/20 15:02 Hospitalist ROS - Medication Medications: Active Medications Generic Name Dose Route Start Last Admin Trade Name Freq PRN Reason Stop Dose Admin Baclofen 10 mg 09/15/20 07:13 09/16/20 21:03 Baclofen 10 Mg Tab PO 10 mg BIDPRN PRN Administration muscle spasms Docusate Sodium 100 mg 09/15/20 21:00 09/18/20 08:47 Docusate 100 Mg Cap PO 100 mg BID SAULO Administration Enoxaparin Sodium 40 mg 09/18/20 09:00 09/18/20 08:48 Enoxaparin Sodium 40 Mg/0.4 Ml Syringe SC 40 mg 0900 SAULO Administration Meropenem 1 gm/ Device 50 mls @ 100 mls/hr 09/15/20 14:00 09/18/20 15:15 IVPB 50 mls Q8HR SAULO Administration Sodium Chloride 1,000 mls @ 125 mls/hr 09/15/20 15:15 09/18/20 15:16 Normal Saline 0.9% IV 1,000 mls .Q8H SAULO Administration Pantoprazole Sodium 40 mg 09/15/20 09:00 09/18/20 08:47 Pantoprazole 40 Mg Tab PO 40 mg DAILY SAULO Administration Polyethylene Glycol 17 gm 09/16/20 09:00 09/18/20 08:48 Polyethylene Glycol 3350 17 Gm Packet PO 17 gm DAILY SAULO Administration Tramadol HCl 25 mg 09/16/20 09:00 09/18/20 08:48 Tramadol Hcl 50 Mg Tab PO 25 mg DAILY SAULO Administration - Exam Eye: PERRL, anicteric sclera Heart: RRR, no murmur, no gallops, no rubs, normal peripheral pulses Respiratory: CTAB, no wheezes, no rales, no ronchi, normal chest expansion, no tachypnea, normal percussion Gastrointestinal: soft, non-tender, non-distended, normal bowel sounds, no palpable masses, no hepatomegaly Extremities: no cyanosis, no clubbing, 1+ LE edema Hosp A/P (1) UTI (urinary tract infection) Status: Acute Qualifiers: Urinary tract infection type: acute cystitis Hematuria presence: without hematuria Qualified Code(s): N30.00 - Acute cystitis without hematuria (2) right obstructive uropathy Status: Acute (3) Moderate protein malnutrition Code(s): E44.0 - MODERATE PROTEIN-CALORIE MALNUTRITION Status: Chronic (4) Nephrolithiasis Status: Chronic (5) Paraplegia Code(s): G82.20 - PARAPLEGIA, UNSPECIFIED Status: Chronic - Plan * UTI in the setting of Right nephrolithiasis- She is s/p ureteral STENT placement, Urine culture is growing E. Coli which is multi-drug resistant * Continue Meropenem * Oral intake is adequate * Anticipate home tomorrow on Invanz
[2020-09-19] MEDS: BERBERINE PO SCH (00:04)
[2020-09-19] MEDS: HOPS PO SCH (00:04)
[2020-09-19] MEDS: VIT D3 VIT K PO SCH (00:04)
[2020-09-19] MEDS: MEROPENEM 1 GM/50 ML 1 GM in Premix Bag 1 BAG IVPB SCH ×3 (05:29→21:27)
--- NOTE | 2020-09-19 07:58 | RAD ---
Abdomen one view HISTORY: Ureteral obstruction. FINDINGS: Large amount of stool throughout the colon suggestive of constipation. Small bowel gas cruz juju is nonspecific. Double pigtail stent projects over the course of the right ureter. Oval calcification rejecting over the inferior pole of the right renal shadow consistent with renal stone. Dystrophic oval calcification projecting over the right pelvis is stable. Osseous structures are demineralized. IMPRESSION : Right ureteral stent is in good radiographic position. Right renal calculus appears stable. Constipation. Osteoporosis.
--- NOTE | 2020-09-19 08:11 | PRG ---
DATE OF SERVICE: 09/19/2020 SUBJECTIVE: Patient without complaints. Denies flank pain. Per nursing staff, no significant gross hematuria of concern. On postop day #0, status post stent. Patient pulled out her indwelling Raymundo catheter with 10 mL balloon intact per nursing staff. She has had no significant hematuria. Has chronic incontinence. OBJECTIVE: VITAL SIGNS: Stable. She is afebrile, 98, 81, 16, 94, 142/75. The patient in diapers. GENERAL: The patient is in no acute distress. ABDOMEN: Soft, nontender, and nondistended. Diaper inspected with no evidence of gross hematuria or spotting. No foreign body extruding from her urethra, consistent with indwelling ureteral stent. EXTREMITIES: Severe contraction. LABORATORY DATA: White count 9.2, hemoglobin stable at 12.5, platelets 111, 83 segs, bandemia has resolved. Creatinine stable at 0.46. Potassium this morning is 3.8. COVID-19 negative, September 14. Urine culture, blood culture demonstrating Escherichia coli multi-drug resistant, sensitive to meropenem. Status post PICC line. IMPRESSION: 1. Ms. Blair is a 79-year-old female presented with Escherichia coli urosepsis. 2. Right hydronephrosis with multiple right renal calculi, right ureteral calculi, status post right stent, September 16. 3. Patient pulled out the indwelling Raymundo catheter postop, with no obvious consequences of concern. No significant hematuria. We will obtain KUB today to ensure the stent is in adequate position, which I anticipate it will be as it is not extruding per her urethra. I anticipate patient can be discharged back to her facility, i.e., to [facility], today From my perspective, if KUB demonstrates no significant concern, can be discharged to [facility] today. The patient will require prolonged IV antibiotic therapy, she will follow up with me at a later date to schedule ureteroscopy, laser lithotripsy in a few weeks. She will require her IV meropenem to continue to cover until surgery and a few days postop from ureteroscopy, laser lithotripsy at a later date. Job ID: [id number] MTDD
[2020-09-19] MEDS: Docusate 100 MG CAP PO SCH ×2 (09:28→21:28)
[2020-09-19] MEDS: Polyethylene Glycol 3350 17 GM Packet PO SCH (09:28)
[2020-09-19] MEDS: Enoxaparin Sodium 40 MG/0.4 ML SYRINGE SC SCH (09:29)
[2020-09-19] MEDS: traMADol HCl 50 MG TAB PO SCH (09:30)
[2020-09-19] MEDS: Sodium Chloride 0.9% 1,000 ML IV SCH ×2 (09:36→16:34)
--- NOTE | 2020-09-19 17:34 | PDOC.HOSPP ---
- Subjective Encounter Date: 09/19/20 Encounter Time: 17:32 Subjective: Ms. Blair was seen today in follow-up of UTI. She does not have any new complaints. - Objective Vital Signs & Weight: Vital Signs (12 hours) Temp Pulse Resp BP Pulse Ox 09/19/20 15:54 98.0 F 89 12 127/73 95 09/19/20 11:01 98.0 F 86 14 136/71 95 09/19/20 08:28 98.8 F 81 14 127/69 94 L 09/19/20 08:00 94 L Weight Weight 114 lb 6.4 oz I&O: 09/18/20 09/19/20 09/20/20 06:59 06:59 06:59 Intake Total 3549 3970 Balance 3548 3970 Result Diagrams: 09/17/20 08:36 09/18/20 15:02 Hospitalist ROS - Medication Medications: Active Medications Generic Name Dose Route Start Last Admin Trade Name Freq PRN Reason Stop Dose Admin Baclofen 10 mg 09/15/20 07:13 09/16/20 21:03 Baclofen 10 Mg Tab PO 10 mg BIDPRN PRN Administration muscle spasms Docusate Sodium 100 mg 09/15/20 21:00 09/19/20 09:28 Docusate 100 Mg Cap PO 100 mg BID SAULO Administration Enoxaparin Sodium 40 mg 09/18/20 09:00 09/19/20 09:29 Enoxaparin Sodium 40 Mg/0.4 Ml Syringe SC 40 mg 0900 SAULO Administration Meropenem 1 gm/ Device 50 mls @ 100 mls/hr 09/15/20 14:00 09/19/20 14:52 IVPB 50 mls Q8HR SAULO Administration Sodium Chloride 1,000 mls @ 125 mls/hr 09/15/20 15:15 09/19/20 16:34 Normal Saline 0.9% IV 1,000 mls .Q8H SAULO Administration Pantoprazole Sodium 40 mg 09/15/20 09:00 09/19/20 09:28 Pantoprazole 40 Mg Tab PO 40 mg DAILY SAULO Administration Polyethylene Glycol 17 gm 09/16/20 09:00 09/19/20 09:28 Polyethylene Glycol 3350 17 Gm Packet PO 17 gm DAILY SAULO Administration Tramadol HCl 25 mg 09/16/20 09:00 09/19/20 09:30 Tramadol Hcl 50 Mg Tab PO 25 mg DAILY SAULO Administration - Exam Eye: PERRL, anicteric sclera Heart: RRR, no murmur, no gallops, no rubs, normal peripheral pulses Respiratory: CTAB, no wheezes, no rales, no ronchi, normal chest expansion, no tachypnea Gastrointestinal: soft, non-tender, non-distended, normal bowel sounds, no palpable masses, no hepatomegaly, no splenomegaly Extremities: no cyanosis, no edema Hosp A/P (1) UTI (urinary tract infection) Status: Acute Qualifiers: Urinary tract infection type: acute cystitis Hematuria presence: without hematuria Qualified Code(s): N30.00 - Acute cystitis without hematuria (2) right obstructive uropathy Status: Acute (3) Moderate protein malnutrition Code(s): E44.0 - MODERATE PROTEIN-CALORIE MALNUTRITION Status: Chronic (4) Nephrolithiasis Status: Chronic (5) Paraplegia Code(s): G82.20 - PARAPLEGIA, UNSPECIFIED Status: Chronic - Plan * UTI in the setting of Right nephrolithiasis- She is s/p ureteral STENT placement, Urine culture is growing E. Coli which is multi-drug resistant * Continue Meropenem * Oral intake is adequate * Discussed with Case Management- planning for out patietn antibiotics are in progress
[2020-09-20] MEDS: Sodium Chloride 0.9% 1,000 ML IV SCH ×2 (03:48→09:03)
[2020-09-20] MEDS: MEROPENEM 1 GM/50 ML 1 GM in Premix Bag 1 BAG IVPB SCH (05:35)
[2020-09-20 08:06] LABS: #Eosinphils 0.3 thou/uL (0.0-0.7); #Lymphocytes 1.2 thou/uL (1.20-3.40); #Monocytes 0.6 thou/uL (0.11-0.59); #Neutrophils 2.3 thou/uL (1.40-6.50); %Basophils 0.3 % (0.0-1.0); %Eosinophils 6.6 % (0.0-10.0); %Lymphocytes 25.9 % (21.0-51.0); %Monocytes 14.3 % (0.0-10.0); %Neutrophils 52.9 % (42.0-75.0); Mean Corpuscular HGB CONC 33.3 g/dL (32.0-36.0); Mean Corpuscular Hemoglobin 32.5 pg (27.0-31.0); Mean Corpuscular Volume 97.5 fL (78.0-98.0); Mean Platelet Volume 8.8 fL (7.4-10.4); Platelet Count 155 thou/uL (130-400); RBC Distribution Width 11.9 % (11.5-14.5); Red Blood Cell (RBC) Count 3.99 mill/uL (4.20-5.40); White Blood Cell (WBC) Count 4.4 thou/uL (4.8-10.8)
[2020-09-20 08:24] LABS: Anion Gap 11 mmol/L (10-20); BUN (Urea Nitrogen) 9 mg/dL (9.8-20.1); Calc. Creatinine Clearance 90 mL/min (70-130); Calcium 7.9 mg/dL (7.8-10.44); Carbon Dioxide 26 mmol/L (23-31); Chloride 106 mmol/L (98-107); Glucose 85 mg/dL (83-110); Potassium 3.4 mmol/L (3.5-5.1); Sodium 140 mmol/L (136-145)
[2020-09-20] MEDS: Polyethylene Glycol 3350 17 GM Packet PO SCH (08:46)
[2020-09-20] MEDS: Docusate 100 MG CAP PO SCH (08:46)
[2020-09-20] MEDS: Enoxaparin Sodium 40 MG/0.4 ML SYRINGE SC SCH (08:46)
[2020-09-20] MEDS: traMADol HCl 50 MG TAB PO SCH (08:53)
--- NOTE | 2020-09-20 09:06 | PRG ---
DATE OF SERVICE: 09/20/2020 SUBJECTIVE: The patient without complaints. OBJECTIVE: VITAL SIGNS: Stable. She has been afebrile. I's and O's, has a PureWick in place. 1650 of urine output remains incontinent. GENERAL: The patient is in no acute distress. ABDOMEN: Soft, nontender, nondistended. No CVA tenderness. EXTREMITIES: Contracted severe. LABORATORY DATA: There are no new labs. No significant white count or leukocytosis. IMPRESSION AND PLAN: 1. Ms. Blair is a 79-year-old female with history of severe contraction and history of right staghorn calculi. 2. Current admission due to Escherichia coli multi-drug resistant urosepsis, postop day #4 status post cystoscopy, right stent. KUB was reviewed demonstrating stent in good position. 3. The patient did remove her Raymundo catheter with balloon intact on postop day #0 with no subsequent hematuria of concern. She will require IV meropenem, from my perspective, minimum of 4 to 6 weeks pending the schedule for her elective ureteroscopy and laser lithotripsy at a later date. Await disposition, coordination of IV meropenem via her PICC line. Course of antibiotic also will be coordinated with Infectious Disease Job ID: [id number] [facility]
[2020-09-20] MEDS ORDERED: Potassium Chloride 20 MEQ TAB PO SCH (09:15)
[2020-09-20 11:23] VITALS: BP 143/81; TEMP 97.5
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
== END 2020-09-20 11:48 | DRG 853 ==
LOC: ERS 16:03 → ERHOLD 19:37 → ONC 09-15 12:27 → T4-B 09-16 17:10
PROVIDERS: ADMIT Internal Medicine; ATTEND Internal Medicine
PROC: 0T768DZ Dilation of Right Ureter with Intraluminal Device, Via Natural or Artificial Opening Endoscopic (ICD-10-PCS; principal; 2020-09-16)
PROC: 02H633Z Insertion of Infusion Device into Right Atrium, Percutaneous Approach (ICD-10-PCS; 2020-09-16)
PROC: B548ZZA Ultrasonography of Superior Vena Cava, Guidance (ICD-10-PCS; 2020-09-16)
PROC: BT1D1ZZ Fluoroscopy of Right Kidney, Ureter and Bladder using Low Osmolar Contrast (ICD-10-PCS; 2020-09-16)
DX: A41.51 Sepsis due to Escherichia coli [E. coli] (principal); G93.41 Metabolic encephalopathy; N13.6 Pyonephrosis; G82.20 Paraplegia, unspecified; E87.1 Hypo-osmolality and hyponatremia; E44.0 Moderate protein-calorie malnutrition; I42.9 Cardiomyopathy, unspecified; Z16.24 Resistance to multiple antibiotics; Z68.1 Body mass index [BMI] 19.9 or less, adult; Z66 Do not resuscitate; Z20.828 Contact with and (suspected) exposure to other viral communicable diseases; R65.20 Severe sepsis without septic shock; K21.9 Gastro-esophageal reflux disease without esophagitis; M62.50 Muscle wasting and atrophy, not elsewhere classified, unspecified site; N31.9 Neuromuscular dysfunction of bladder, unspecified; E86.0 Dehydration; H53.149 Visual discomfort, unspecified; H53.2 Diplopia; E55.9 Vitamin D deficiency, unspecified; N39.41 Urge incontinence; E78.5 Hyperlipidemia, unspecified; K59.09 Other constipation; M81.0 Age-related osteoporosis without current pathological fracture; Z88.2 Allergy status to sulfonamides; Z88.5 Allergy status to narcotic agent; Z79.899 Other long term (current) drug therapy
CPT/HCPCS: 0240U; 36415; 36416; 36569; 51701; 70450; 70496; 70498; 71045; 74018; 74176; 74420; 76536; 80048; 80053; 81003; 81015; 83605; 84132; 84484; 85025; 85610; 85730; 87040; 87077; 87086; 87149; 87186; 87635; 93005; 96365; 96367; C1751; C9803; J0696; J1644; J1650; J2185; J2405; J2704; J3370; J3490; Q9967; U0003

== ENCOUNTER 2020-10-03 06:37 | Outpatient (CLI) | payer MEDICARE, BC ==
[2020-10-03 09:46] LABS: Hemoglobin 12.9 g/dL (12.0-16.0); Mean Corpuscular HGB CONC 31.6 G/DL (32.0-36.0); Mean Corpuscular Hemoglobin 30.6 PG (27.0-33.0); Mean Corpuscular Volume 96.9 fl (80.0-100.0); Mean Platelet Volume 11.4 fl (7.4-10.4); Platelet Count 215 10x3/uL (130-400); RBC Distribution Width 12.7 % (11.5-14.5); Red Blood Cell (RBC) Count 4.21 10x6/uL (3.90-5.20); White Blood Cell (WBC) Count 2.8 10x3/uL (4.5-11.0)
[2020-10-03 10:04] LABS: PTT 30.3 sec (22.0-33.0); Prothrombin Time 10.9 sec (9.5-12.1)
[2020-10-03 10:23] LABS: Anion Gap 13 mmol/L (10-20); BUN (Urea Nitrogen) 23 mg/dL (9.8-20.1); Calc. Creatinine Clearance 0 mL/min (70-130); Calcium 8.8 mg/dL (7.8-10.44); Carbon Dioxide 29 mmol/L (23-31); Chloride 104 mmol/L (98-107); Glucose 75 mg/dL (83-110); Potassium 4.2 mmol/L (3.5-5.1); Sodium 142 mmol/L (136-145)
[2020-10-03 22:10] LABS: SARS-CoV-2 MS2 Positive; SARS-CoV-2 N Gene Negative; SARS-CoV-2 S Gene Negative; SARS-CoV-2 by NAA Not Detected (NotDetected); SARS-CoV-2 orf1ab Negative
== END 2020-10-03 06:38 | disposition home or self-care (01) ==
LOC: LABBT 06:37
PROVIDERS: ATTEND Urology
DX: Z01.818 Encounter for other preprocedural examination (principal); Z01.812 Encounter for preprocedural laboratory examination; N20.0 Calculus of kidney; N39.41 Urge incontinence; G82.20 Paraplegia, unspecified; M24.50 Contracture, unspecified joint; K59.00 Constipation, unspecified; Z20.822 Contact with and (suspected) exposure to COVID-19
CPT/HCPCS: 80048; 85027; 85610; 85730; 93005; U0003; 87635; 93010

== ENCOUNTER 2020-10-05 07:29 | Day surgery (SDC) | payer MEDICARE, BC ==
[2020-09-28 15:02] VITALS: BMI 21.2
[2020-10-05] MEDS ORDERED: Ertapenem 1 GM in Sodium Chloride 0.9% 100 ML IVPB SCH (07:45)
[2020-10-05] MEDS ORDERED: ePHEDrine 50 MG/ML VIAL ONE (08:48)
[2020-10-05] MEDS ORDERED: PHENYLEPHRINE-NS 100 MCG/ML 10 ML SYRINGE ONE (08:48)
[2020-10-05] MEDS ORDERED: PROPOFOL 200 MG/20 ML VIAL ONE (08:48)
[2020-10-05] MEDS ORDERED: Ondansetron PF 4 MG/2 ML Vial ONE (08:48)
[2020-10-05] MEDS ORDERED: Glycopyrrolate 0.2 MG/ML 5 ML SYRINGE ONE (08:48)
[2020-10-05] MEDS ORDERED: Lidocaine 1% PF 5 ML VIAL ONE (08:48)
[2020-10-05] MEDS ORDERED: Dexamethasone 20 MG/5 ML VIAL ONE (08:48)
--- NOTE | 2020-10-05 09:32 | RAD ---
EXAM: XR Abdomen 1 View/KUB PROVIDED CLINICAL HISTORY: Renal calculi COMPARISON: 09/19/2020 FINDINGS: There is conspicuous colonic fecal retention redemonstrated. Right ureteral stent is again demonstrat ed in similar position. No radiographically apparent urinary tract calculi. Diffuse osteopenia. The visualized lung bases appear clear. IMPRESSION: No radiographically apparent urinary tract calculi.
[2020-10-05] MEDS ORDERED: Fentanyl 100 MCG/2 ML VIAL ONE (09:44)
[2020-10-05] MEDS ORDERED: Iothalamate Meglumine 60% 50 ML VIAL FS ONE (09:47)
--- NOTE | 2020-10-05 12:04 | RAD ---
EXAM: XR IVP Retrograde PROVIDED CLINICAL HISTORY: Right renal calculus. Ureteral stent placement. COMPARISON: 09/16/2020 FINDINGS/IMPRESSION: 10 intraoperative fluoroscopic images are submitted. Initial images demonstrates right ureteral stent in place with inferior pole right renal calculus present. There is a moderately large amount of retained fecal material seen throughout the colon suggesting constipation. There is a calcification o verlying the right lower quadrant which was seen on prior CT abdomen and may represent calcified lymph node. There is mild height loss of several lumbar vertebral bodies related to compression fract ures of indeterminate age, but these compression deformities are stable compared to prior study. Subsequent fluoroscopic images demonstrate removal of the ureteral stent and placement of a guidewire and guide catheter. Final image demonstrates replacement of the right ureteral stent. The previously suggested renal calculus is not definitely visualized on final images suggesting treatment . Correlation with intraoperative findings is recommended.
[2020-10-05] MEDS ORDERED: Phenazopyridine HCl 100 MG TAB ONE (12:07)
[2020-10-05] MEDS ORDERED: Oxybutynin 5 MG TAB ONE (12:07)
--- NOTE | 2020-10-05 12:30 | OP ---
DATE OF PROCEDURE: 10/05/2020 PRIMARY CARE PHYSICIAN: Wing Weathers MD PREOPERATIVE DIAGNOSES: 1. A 79-year-old male, with history of right staghorn, recently admitted in August due to multi-drug resistant ESBL urosepsis. 2. Multiple right renal calculi: 7 to 8 mm right distal ureteral calculi, 1-cm right upper pole, 1-cm right mid pole, 8 mm in the right renal pelvis. Left kidney, unremarkable. POSTOPERATIVE DIAGNOSES: 1. A 79-year-old male, with history of right staghorn, recently admitted in August due to multi-drug resistant ESBL urosepsis. 2. Multiple right renal calculi: 7 to 8 mm right distal ureteral calculi, 1-cm right upper pole, 1-cm right mid pole, 8 mm in the right renal pelvis. Left kidney, unremarkable. PROCEDURES PERFORMED: Cystoscopy, 6 x 30 double-J ureteral stent exchange, rigid ureteroscopy, laser lithotripsy of distal ureteral calculi, basket extraction of stone debris, flexible ureteroscopy, pyeloscopy, laser lithotripsy of stone burden of the renal pelvis, basket extraction of stone debris, 6 x 30 double-J ureteral stent. Modifier 22 ANESTHESIA: General. COMPLICATIONS: None apparent. DISPOSITION: To recovery room in stable condition. INTRAOPERATIVE FINDINGS: 1. Right distal ureteral calculi consistent with CT, with successful labored fragmentation. 2. Right pyeloscopy demonstrates one obvious stone burden in the renal pelvis about 8 to 10 mm, which was treated with laser lithotripsy, other stone seen on CT scan as above are not definitively characterized on pyeloscopy, multiple blood clots within the collecting system of the mid and upper pole. 3. Previous right renal calculi are not definitely visualized on today's KUB. INDICATIONS FOR PROCEDURE AND HISTORY: Ms. Blair is a 79-year-old female with severe contraction of her lower extremity, with history of recurrent UTI, multiple recurrent renal calculi, with right staghorn. She was on surveillance of previous ureteroscopy, laser lithotripsy as the stone burden was mostly dust-like stone debris, as we frequently see with bedridden patients. She was being surveyed for residual stone nidus as they were mostly stone debris on pyeloscopy. However, due to COVID-19 pandemic, she had failed to follow up with surveillance imaging. She subsequently presented with urosepsis in August with obstructing right distal ureteral calculi, multiple right renal calculi as above and successful stent was placed, and has been on IV Invanz via PICC line through Dr. Eid' Service and presents today for ureteroscopy, laser lithotripsy. The patient's daughter, who is a power of civil rights attorney, has been fully informed regarding increased risk of surgical intervention given her body habitus, age, multiple stone nidus and challenging nature due to severe contraction of her lower extremities in which ureteroscopy is very difficult and challenging. The patient and daughter are aware and they desired to proceed with ureteroscopy, laser lithotripsy with full understanding with likely stage intervention. Risks and complications of procedure including, but not limited to, bleeding, pain, infection, urosepsis, ureteral-renal injury discussed with them in detail as well as perioperative morbidity and mortality. DESCRIPTION OF PROCEDURE: After an informed consent was signed, the patient was taken to the operating room, placed in a dorsal lithotomy position with the genital area prepped and draped in the usual surgical sterile fashion. We took great care in putting her in a modified lithotomy position, as she has severe contraction of her lower extremities, hips. With her legs gently abducted, we performed a cystoscopy. Due to her severe contractions, there was just limited room to perform cystoscopy in a lithotomy position. We were able to place the cystoscope and retrieve the previous ureteral stent and a 0.035 Sensor wire was placed into the right upper pole through the stent. A rigid ureteroscopy was then gently performed, I was able to visualize the stone in the distal ureter about 3 to 4 cm proximal to the UO and this was a large fluffy stone burden consistent with recurrent UTI, infected stone. Using 365 micron laser fiber at 1.0 joules, we laser lithotripsied the stone successfully and stone fragments were extracted. We surveyed the ureter up to the proximal ureter with the rigid scope and I did not see any evidence of further stone nidus of concern. Through the safety wire, a 10-Faroese dual-lumen access sheath was placed into the right proximal ureter, which passed without difficulty as she has hydroureter from obstructing distal ureteral calculi. A 13/15-Faroese 28 cm navigator was able to be passed without significant issues. We surveyed the collecting system and the obvious stone that I saw was in the renal pelvis, which we successfully laser lithotripsied with 278 ball-tip laser micron fiber. Surveillance of the upper and mid pole was suboptimal as there was a moderate-sized clot debris adherent to the calyx. I surveyed the lower pole, I did not see any stone burden in the lower pole either. We attempted multiple attempts to retrieve the clots, however, this was very challenging, although I was able to remove some clots. Stones were still difficult to see. It was unclear to me if she passed a stone, or there were debris within it, which may have passed. Nevertheless, we took more time trying to negotiate through the blood clots to see if I can see the stone safely. Numerous attempts were passed and I was able to remove some clots. However, we terminated the procedure at this point, as I could not definitely find the stone due to clot debris. There was no obvious stone debris despite us being steadfast and doing a further pyeloscopy. The survey of the ureter demonstrated no evidence of ureteral stone nidus of concern. A 6 x 30 double-J ureteral stent was replaced. I will monitor her with an indwelling ureteral stent for a week or so, staging CT will be obtained prior to her appointment. As the KUB today demonstrates that her stones are not obvious compared to her preop KUB few weeks ago, I will obtain staging CT to assess for residual stone burden. If there was obvious stone burden of concern, we will schedule for second ureteroscopy, laser lithotripsy at a later date. She was to continue IV Invanz. Job ID: [id number] [facility]ERStefanie
[2020-10-05] MEDS ORDERED: Sodium Chloride 0.9% 0 ML ONE (13:23)
[2020-10-05] MEDS ORDERED: Sodium Chloride 0.9% 10 ML ONE (13:24)
== END 2020-10-05 13:42 | disposition home or self-care (01) ==
LOC: SDC 07:29
PROVIDERS: ATTEND Urology
PROC: 0TC38ZZ Extirpation of Matter from Right Kidney Pelvis, Via Natural or Artificial Opening Endoscopic (ICD-10-PCS; principal; 2020-10-05)
PROC: 0TC68ZZ Extirpation of Matter from Right Ureter, Via Natural or Artificial Opening Endoscopic (ICD-10-PCS; 2020-10-05)
PROC: 0T768DZ Dilation of Right Ureter with Intraluminal Device, Via Natural or Artificial Opening Endoscopic (ICD-10-PCS; 2020-10-05)
DX: N20.2 Calculus of kidney with calculus of ureter (principal); K21.9 Gastro-esophageal reflux disease without esophagitis; E55.9 Vitamin D deficiency, unspecified; Z79.899 Other long term (current) drug therapy; Z88.2 Allergy status to sulfonamides; Z88.6 Allergy status to analgesic agent; Z88.8 Allergy status to other drugs, medicaments and biological substances
CPT/HCPCS: 74018; 74420; 82365; 88300; J1100; J1335; J1642; J2405; J2704; J3010; J3490

== ENCOUNTER 2020-10-13 10:11 | Outpatient (CLI) | payer MEDICARE, BC ==
--- NOTE | 2020-10-13 11:17 | CT ---
CT ABDOMEN AND PELVIS PERFORMED WITHOUT CONTRAST ENHANCEMENT: HISTORY: Renal calculus. COMPARISON: A 09/15/2020 study. FINDINGS: The lung bases are clear of any infiltrates. There is elevation to the right hemidiaphragm. The liver, spleen, pancreas, and gallbladder regions appear unremarkable given the limitations of a n oncontrast study. Right and left adrenal glands are normal. There has been placement of a right ureteral stent which i s in good position. There is minimal residual dilatation to the right collecting system. Multiple r ight renal calculi are seen. I do not appreciate any evidence of a ureteral calculus. No significan t periaortic or mesenteric adenopathy. Left kidney is normal in size and appearance. A moderate mukund unt of stool throughout the colon. CT OF PELVIS PERFORMED WITHOUT CONTRAST ENHANCEMENT: No adenopathy, mass, or free fluid. IMPRESSION: 1. Multiple right-sided renal calculi. A right ureteral stent is in good position with minimal dila tation to the right collecting system. I do not appreciate any definitive ureteral calculi. 2. Constipation. 3. Stable densely calcified mass at the thoracolumbar junction. 4. Chronic right hip dislocation. POS: [facility]
== END 2020-10-13 10:12 | disposition home or self-care (01) ==
LOC: CT 10:11
PROVIDERS: ATTEND Urology
DX: N20.0 Calculus of kidney (principal); K59.00 Constipation, unspecified; M24.451 Recurrent dislocation, right hip; M48.8X5 Other specified spondylopathies, thoracolumbar region; Z96.0 Presence of urogenital implants
CPT/HCPCS: 74176

== ENCOUNTER 2020-10-17 07:42 | Day surgery (SDC) | payer MEDICARE, BC ==
[2020-10-14 12:29] VITALS: BMI 24.2
--- NOTE | 2020-10-17 08:32 | RAD ---
Abdomen one view HISTORY: Renal calculus. COMPARISON: 10/13/2020. FINDINGS: Large amount of stool throughout the colon and rectum. Renal outlines predominantly obscure d. Opaque tail stent overlying the course of the right ureter is unchanged in position. Right renal ston es not visualized, obscured by bowel content. Oval calcification within a diverticulum of the right colon noted. Phleboliths project over the pelvi s. IMPRESSION : Stable exam. Right ureteral stent in good position.
[2020-10-17] MEDS ORDERED: Rocuronium Bromide 10 MG/ML (10ML VIAL) ONE (08:55)
[2020-10-17] MEDS ORDERED: Lidocaine 1% PF 5 ML VIAL ONE (08:55)
[2020-10-17] MEDS ORDERED: PHENYLEPHRINE-NS 100 MCG/ML 10 ML SYRINGE ONE (08:55)
[2020-10-17] MEDS ORDERED: PROPOFOL 200 MG/20 ML VIAL ONE (08:55)
[2020-10-17] MEDS ORDERED: Meropenem 500 MG in Sodium Chloride 0.9% 100 ML IVPB SCH (09:00)
[2020-10-17] MEDS ORDERED: Iothalamate Meglumine 60% 50 ML VIAL FS ONE (10:08)
[2020-10-17] MEDS ORDERED: Fentanyl 100 MCG/2 ML VIAL ONE ×2 (10:20)
[2020-10-17] MEDS ORDERED: Phenylephrine 10 MG/ML VIAL ONE (10:59)
[2020-10-17] MEDS ORDERED: SUGAMMADEX SODIUM 200 MG/2 ML VIAL ONE (11:19)
[2020-10-17] MEDS ORDERED: Oxybutynin 5 MG TAB ONE (11:43)
[2020-10-17] MEDS ORDERED: Phenazopyridine HCl 100 MG TAB ONE ×2 (11:43)
--- NOTE | 2020-10-17 12:04 | RAD ---
EXAM: XR IVP Retrograde PROVIDED CLINICAL HISTORY: Right ureteral stent replacement, right ureteral calculi. COMPARISON: Retrograde study on 10/05/2020 FINDINGS/IMPRESSION: Initial image demonstrates right ureteral stent in place. Faint calcification overlying the inferior pole right renal shadow is present. Prominent lucent centered calcination overlying right hemipelvis is again seen. Subsequent images demonstrate removal of the ureteral stent with placement of guidewire and guide catheter. Right retrograde study demonstrates mild calyceal dilatation. Final image demonstrates replacement of right ureteral stent. Correlation with intraoperative finding s is recommended.
[2020-10-17] MEDS ORDERED: Sodium Chloride 0.9% 10 ML ONE (13:16)
--- NOTE | 2020-10-18 11:38 | OP ---
DATE OF PROCEDURE: 10/17/2020 PREOPERATIVE DIAGNOSES: 1. A 79-year-old female with history of right staghorn, recently admitted due to ESBL multi-drug resistant urosepsis. 2. Multiple right renal calculi: 7 to 8 mm right distal ureteral calculi, status post ureteroscopy with resolution. 3. Multiple right renal calculi history, 1 cm right upper pole, 1 cm right mid pole, 8 mm right renal pelvis. Left kidney is unremarkable, status post right ureteroscopy. POSTOPERATIVE DIAGNOSES: 1. A 79-year-old female with history of right staghorn, recently admitted due to ESBL multi-drug resistant urosepsis. 2. Multiple right renal calculi: 7 to 8 mm right distal ureteral calculi, status post ureteroscopy with resolution. 3. Multiple right renal calculi history, 1 cm right upper pole, 1 cm right mid pole, 8 mm right renal pelvis. Left kidney is unremarkable, status post right ureteroscopy. PROCEDURES PERFORMED: Cystoscopy, 6 x 28 double-J ureteral stent exchange with distal tail in situ, flexible ureteroscopy, pyeloscopy, laser lithotripsy, basket extraction of stone debris, 6 x 28 double-J ureteral stent exchange. ANESTHESIA: LMA, general. COMPLICATIONS: None apparent. SPECIMEN: None. INTRAOPERATIVE FINDINGS: 1. Resolution of right distal ureteral calculi. 2. Pyeloscopy demonstrates improvement, resolution of multiple calyceal blood clot, hindering visualization on previous pyeloscopy. 3. Multiple right renal calculi debris. dustlike, sedimentous debris. 4. No evidence of ureteral calculi residual. INDICATIONS FOR PROCEDURE AND HISTORY: Ms. 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 She underwent ureteroscopy, pyeloscopy few weeks ago, and treatment of her right obstructing ureteral calculi. She presents today for staged pyeloscopy as her previous pyeloscopy demonstrated multiple calyceal blood clots hindering visualization. CT staging was obtained, which demonstrates resolution of her stone burden, this demonstrates no evidence of right ureteral calculi, multiple fragmented renal calculi noted per my review. They are small in caliber: 3 to 4 mm in nidus, 4 mm right lower pole linear calcific density. As pyeloscopy previously hindered visualization, advised regarding options of pyeloscopy, treatment of her stone debris and evacuation if conducive versus observation. Daughter desires restaging pyeloscopy as options were provided regarding the above. Risks and complications of the procedure have been discussed with her in detail including, but not limited to, bleeding, pain, infection, injury to adjacent organs, urosepsis, [id number] injury. All questions answered to her satisfaction and desired to proceed. DESCRIPTION OF PROCEDURE: After an informed consent was signed, the patient was taken to the operating room, placed in the dorsal lithotomy position with the genital area prepped and draped in the usual surgical sterile fashion. A 21- [place] cystoscope was utilized for cystoscopy, which demonstrated the previous stent at the level of the bladder and this was removed to the level of the meatus. A 0.035 Sensor wire was placed into the right upper pole through the stent and the stent completely removed. At this time, a 10-[place] dual-lumen access sheath was passed without significant issues and a retrograde pyelogram performed demonstrating no evidence of hydronephrosis or obvious filling defect of concern. Some air bubbles were seen in the ureter. A 0.035 Super Stiff wire was placed into the right upper pole. At this time, a 13/15-[place] x 28 navigator passed without significant issues to the level of the UPJ. Flexible pyeloscopy, ureteroscopy was performed, which demonstrated multiple stone debris in the upper mid and lower calyx. We laser lithotripsy some stones as they were about 3 to 4 mm. However, with further laser lithotripsy, what remained in the collecting system were sedimentous debris, which had a snow globe effect, too small to basket or laser lithotripsy. Pyeloscopy was repeated, there was no obvious stone nidus warranting further treatment. There was significant improvement of her stone burden compared to her recent CT, and of course with her initial presenting CT, which demonstrated a lot of sedimentous debris. The ureter was surveyed, which demonstrated no evidence of ureteral mucosa trauma nor stone nidus of concern. A 6 x 28 double-J ureteral stent was passed without difficulty. She will see me next for cysto, stent pull under local, I will reach out to Dr. Eid, as her antibiotic was to be discontinued on October 20. As she was scheduled for cysto, stent pull on the , we will extend her antibiotic regimen 48 hours after her stent is removed for appropriate coverage. Job ID: [id number] [facility]
== END 2020-10-17 13:25 | disposition short-term general hospital (02) ==
LOC: SDC 07:42
PROVIDERS: ATTEND Urology
PROC: 0TC38ZZ Extirpation of Matter from Right Kidney Pelvis, Via Natural or Artificial Opening Endoscopic (ICD-10-PCS; principal; 2020-10-17)
PROC: 0T768DZ Dilation of Right Ureter with Intraluminal Device, Via Natural or Artificial Opening Endoscopic (ICD-10-PCS; 2020-10-17)
DX: N20.0 Calculus of kidney (principal); N39.41 Urge incontinence; G82.20 Paraplegia, unspecified; M24.50 Contracture, unspecified joint; K59.00 Constipation, unspecified; A41.51 Sepsis due to Escherichia coli [E. coli]; E55.9 Vitamin D deficiency, unspecified; E78.5 Hyperlipidemia, unspecified; M81.0 Age-related osteoporosis without current pathological fracture; I65.22 Occlusion and stenosis of left carotid artery; K57.30 Diverticulosis of large intestine without perforation or abscess without bleeding; Z79.899 Other long term (current) drug therapy; Z88.2 Allergy status to sulfonamides; Z88.6 Allergy status to analgesic agent; Z88.8 Allergy status to other drugs, medicaments and biological substances
CPT/HCPCS: 74018; 74420; J2185; J2370; J2704; J3010; J3490

== ENCOUNTER → 2020-12-07 | Day surgery (SDC) | payer MEDICARE, BC ==
[2020-12-06 13:47] VITALS: BMI 20.5
[~2020-12-07] MED LIST changes: +FLU VACC QS2020-21(65YR UP)/PF 240 MCG/0.7 ML SYRINGE IM ONE; -Heparin 1,000 UNITS/ML VIAL ONE; -Iopamidol-370 76% 500 ML 1 ML ONE; +Lidocaine 1% PF 5 ML VIAL ONE; +Sodium Bicarbonate 2.5 MEQ/5 ML VIAL ONE
[2020-12-07 14:18] VITALS: BP 120/68; TEMP 98.1
== END ==
LOC: ULT 13:00
PROVIDERS: ATTEND Student in an Organized Health Care Education/Training Program
PROC: 0GBG0ZX Excision of Left Thyroid Gland Lobe, Open Approach, Diagnostic (ICD-10-PCS; principal; 2020-12-07)
DX: E04.2 Nontoxic multinodular goiter (principal); K21.9 Gastro-esophageal reflux disease without esophagitis; Z79.899 Other long term (current) drug therapy; Z88.2 Allergy status to sulfonamides; Z88.6 Allergy status to analgesic agent; Z88.8 Allergy status to other drugs, medicaments and biological substances
CPT/HCPCS: 60100; 76942; 88173